=== PATIENT | female | born 1935 | race Caucasian/White ===

== ENCOUNTER 2023-09-02 07:13 | Inpatient (IN) | payer MEDICARE, BC, SELFPAY ==
[2023-09-02] VITALS (19 sets, daily range): BP systolic 98–172; BP diastolic 61–71; PULSE 74–118; RESP 14–27; TEMP 36.7–36.9; O2SAT 85–99; BMI 16.1; BMI 27.2
--- NOTE | 2023-09-02 07:21 | ECG_ITS ---
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
--- NOTE | 2023-09-02 07:22 | CT_ITS ---
[place] [id number] Patient Name: RICHARD HUNT MRN: [id number] date: 1935 Sex: F Assigned Patient Location: ER Current Patient Location: ED.MAIN Accession/Order Number: [id number] Exam Date: 09/02/2023 07:43 Report Date: 09/02/2023 08:15 At the request of: SUSU ESTRADA Procedure: CT head/brain wo con CT head/brain wo con, 09/02/2023 7:43 AM EDT INDICATION: Fall COMPARISON: Noncontrast CT of the head 08/19/2021, noncontrast CT of the head 09/07/2022 TECHNIQUE: Axial CT images of the brain from skull base to vertex, including portions of the face and sinuses, were obtained without contrast. Multiplanar reformatted images were generated and reviewed as needed. FINDINGS: No intracranial mass, hydrocephalus, midline shift or acute hemorrhage. No extra-axial collection. Multifocal and confluent periventricular and deep white matter microvascular ischemic change. Ward-white matter differentiation is preserved. Remote lacunar infarcts and calcification within the basal ganglia bilaterally. Hyperostosis with chronic mucosal thickening within the maxillary sinus, sphenoid sinus and ethmoid air cells bilaterally. Mucosal thickening within the left frontal sinus. The remaining visualized paranasal sinuses and mastoid air cells are clear. Stable degenerative change right temporomandibular joint. Orbits are within normal limits. No acute skull fracture. CT/CT head/brain wo con IMPRESSION: No acute intracranial abnormality. Electronically authenticated by: REINALDO COLEMAN Date: 09/02/2023 08:15
--- NOTE | 2023-09-02 07:22 | XR_ITS ---
The [address] [address] Patient Name: RICHARD HUNT MRN: [id number] date: 1935 Sex: F Assigned Patient Location: ER Current Patient Location: ER Accession/Order Number: [id number] Exam Date: 09/02/2023 07:50 Report Date: 09/02/2023 08:26 At the request of: SUSU ESTRADA Procedure: XR chest 1V EXAM: CHEST 1 VIEW HISTORY: fall TECHNIQUE: Chest, one view. COMPARISON: 08/22/2021 FINDINGS: There are chronic interstitial and mild hazy opacities throughout both lungs, unchanged, and likely from chronic interstitial lung disease/pulmonary fibrosis. There is no significant lung consolidation. No effusion. No pneumothorax. There is aortic atherosclerosis and normal heart size. Pulmonary vasculature within normal limits. XR/XR chest 1V IMPRESSION: 1. No significant change. Chronic interstitial and mild hazy opacities throughout the lungs reflecting chronic interstitial lung disease/pulmonary fibrosis. No significant lung consolidation but small areas of pneumonitis can be obscured. 2. Atherosclerosis and normal heart size. Electronically authenticated by: ARTUR CLARK Date: 09/02/2023 08:26
--- NOTE | 2023-09-02 07:23 | XR_ITS ---
The [address] [address] Patient Name: RICHARD HUNT MRN: [id number] date: 1935 Sex: F Assigned Patient Location: ER Current Patient Location: ED.MAIN Accession/Order Number: [id number] Exam Date: 09/02/2023 07:50 Report Date: 09/02/2023 10:04 At the request of: SUSU ESTRADA Procedure: XR hip BI w PEL 1V EXAM: XR hip BI w PEL 1V 09/02/2023 COMPARISON STUDY: CT of the abdomen and pelvis 08/20/2021. FINDINGS: AP pelvis as well as frontal and frogleg views of each hip for a total of 5 images obtained. HISTORY: fall XR/XR hip BI w PEL 1V IMPRESSION: 1. No acute fracture or dislocation. 2. Lumbar dextroscoliosis centered at the L4 level with moderate to severe degenerative changes from L3-L4 through L5-S1 levels again noted. 3. Mild/moderate arthritic changes about both hips and pubic symphysis and less so about both SI joints with evidence of chondrocalcinosis again noted. 4. Atherosclerosis with peripheral vascular arterial disease again noted. 5. Lobulated calcified focus within the right hemipelvis, 2.6 cm superior to inferior again identified. Numerous subcentimeter pelvic phleboliths are identified. Electronically authenticated by: JAYANT MONTEIRO Date: 09/02/2023 10:04
--- NOTE | 2023-09-02 07:23 | CT_ITS ---
The [address] [address] Patient Name: RICHARD HUNT MRN: [id number] date: 1935 Sex: F Assigned Patient Location: ER Current Patient Location: ER Accession/Order Number: [id number] Exam Date: 09/02/2023 07:42 Report Date: 09/02/2023 08:33 At the request of: SUSU ESTRADA Procedure: CT lumbar spine wo con EXAMINATION: CT lumbar spine wo con HISTORY: fall COMPARISON: No relevant comparison available. TECHNIQUE: Axial, Coronal, and Sagittal CT images were created without I.V. contrast material. Dose reduction techniques were achieved by using automated exposure control and/or adjustment of mA and/or kV according to patient size and/or use of iterative reconstruction technique. FINDINGS: PARASPINAL AREA: Normal with no visible mass. BONES: No acute fracture or dislocation. Moderate to severe degenerative changes with spondylosis and facet osteoarthritis. Rotatory levocurvature DISC LEVELS: Moderate to severe disc space narrowing with vacuum discs and endplate sclerosis with narrowing of the right L4-L5 and L5-S1 neuro foramen CT/CT lumbar spine wo con IMPRESSION: Moderate to severe degenerative changes with no acute fracture Electronically authenticated by: TAL MALDONADO Date: 09/02/2023 08:33
--- NOTE | 2023-09-02 07:25 | ED.BACK1 ---
HPI - Back Pain/Injury General Chief Complaint: Back Pain/Injury Stated Complaint: fall Time Seen by Provider: 09/02/23 07:21 Source: patient and family Mode of arrival: ambulance Limitations: no limitations History of Present Illness HPI Narrative: patient here today for evaluation of a fall. She lives independently and her family says she normally does very well. They saw her last night. The 's son was suspicious because she is having increasing ear pain last night and needed assistance getting out of her chair. When they went to her house this morning she had fallen by her bedside. She was awake alert and coherent with no change in her normal cognition. She does have a local primary care doctor. She does not have a complaint of head or neck pain. She is a good historian complains of pain in her low back and both hips. She's not had previous back or hip surgery. She has no chest pain or shortness of breath. She's not been sick with cough cold congestion fever chills nausea or vomiting. (Family says she normally does quite well on herself at home. Related Data Allergies Allergy/AdvReac Type Severity Reaction Status Date / Time No Known Drug Allergies Allergy Verified 09/02/23 07:16 [facility] Social History Smoking status: Never smoker Exam Narrative Exam Narrative: patient is awake alert oriented ?3. Vital signs as noted. She complains low back pain. She is oriented ?3 and knows her family members well and communicates well with us. HEENT shows no evidence craniofacial trauma or injury. She has no pain with palpation of her neck and cervical spine. Her chest shows no his of bruises or contusions. Her lungs are clear with no wheezes rales or rhonchi. Heart rate and rhythm showed mild irregularity confirmed with EKG that suggest atrial fibrillation. Abdomen is nontender to palpation. Pelvis has no discomfort when rocking. Hip range of motion passive did not reproduce any pain or discomfort. There is no external rotation or shortening of the extremity. Her pulses to the extremities were strong with good peripheral perfusion. Turning her on her left side she does have midline low back pain. There is no evidence of shingles or other skin lesions no evidence of bruises or contusions. Constitutional Vital Signs, click to edit/add: Last Vital Signs Temp 98.1 F 09/02/23 07:16 Pulse 106 H 09/02/23 08:40 Resp 27 H 10/10/23 08:40 BP 147/68 H 09/02/23 07:16 Pulse Ox 99 09/02/23 08:40 O2 Del Method Room Air 09/02/23 07:16 Course Vital Signs Vital signs: Vital Signs Temperature 98.1 F 09/02/23 07:16 Pulse Rate 118 H 09/02/23 07:16 Respiratory Rate 20 09/02/23 07:16 Blood Pressure 147/68 H 09/02/23 07:16 Pulse Oximetry 96 09/02/23 07:16 Oxygen Delivery Method Room Air 09/02/23 07:16 Temperature 98.1 F 09/02/23 07:16 Pulse Rate 106 H 09/02/23 08:40 Respiratory Rate 27 H 09/02/23 08:40 Blood Pressure 147/68 H 09/02/23 07:16 Pulse Oximetry 99 09/02/23 08:40 Oxygen Delivery Method Room Air 09/02/23 07:16 MDM - Back Pain/Injury MDM Narrative Medical decision making narrative: CT scan of the lumbar spine had disclosed no acute findings but there is moderate to severe degenerative changes in her spine. Other imaging did not disclose any acute fracture. Laboratory studies show increased BUN/creatinine. Her urinalysis appears to be contaminated study and we will discuss this with the on with the admitting physician. Her labs suggest dehydration and inability take care of herself at home according to the family members. Just admission for hydration rule out urinary tract infection and supportive care for her ongoing back problems Two speaking with the attending physician who agrees for admission we will go ahead and start her on Rocephin. EKG is consistent with atrial fibrillation but she does have stable vitals and controlled ventricular response at this time. This was discussed with the family Lab Data Labs: Lab Results 09/02/23 Range/Units 07:35 WBC 17.7 H (4.0-11.0) 10^3/uL RBC 3.50 L (4.20-5.40) 10^6/uL Hgb 10.2 L (12.0-16.0) g/dL Hct 30.1 L (36.0-48.0) % MCV 86.0 (81.0-99.0) fL MCH 29.1 (26.7-34.0) pg MCHC 33.9 (29.9-35.2) g/dL RDW 13.5 (11.0-15.0) % Plt Count 154 (150-450) 10^3/uL MPV 9.9 (9.5-13.5) fL Seg Neuts % (Manual) 90.0 Band Neutrophils % 3.0 (0-5) % Lymphocytes % (Manual) 2.0 L (20.5-60.0) % Monocytes % (Manual) 5.0 (1.7-12.0) % Eosinophils % (Manual) 0.0 L (0.9-7.0) % Basophils % (Manual) 0.0 L (0.2-2.0) % Neutrophils # (Manual) 15.93 H (1.4-6.5) 10^3/uL Band Neutrophils # 0.5 H (0.0-0.3) 10^3/uL Lymphocytes # (Manual) 0.35 L (1.20-3.80) 10^3/uL Monocytes # (Manual) 0.88 H (0.30-0.80) 10^3/uL Eosinophils # (Manual) 0.00 (0.00-0.70) 10^3/uL Basophils # (Manual) 0.00 (0.00-0.10) 10^3/uL Sodium 134 L (136-145) mmol/L Potassium 4.3 (3.5-5.1) mmol/L Chloride 101 (98-107) mmol/L Carbon Dioxide 19.7 L (21.0-32.0) mmol/L Anion Gap 17.6 BUN 35.0 H (7.0-18.0) mg/dL Creatinine 1.73 H (0.55-1.02) mg/dL Est GFR ( Amer) 34 L (>=60) Est GFR (Non-Af Amer) 28 L (>=60) BUN/Creatinine Ratio 20.2 Glucose 157 H (74-106) mg/dL Calcium 8.9 (8.5-10.1) mg/dL Total Bilirubin 0.7 (0.2-1.0) mg/dL AST 45 H (15-37) U/L ALT 20 (14-59) U/L Alkaline Phosphatase 50 (46-116) U/L Troponin I High Sens 59.0 H* (4.0-51.3) pg/mL Total Protein 7.4 (6.4-8.2) g/dL Albumin 3.3 L (3.4-5.0) g/dL Globulin 4.1 g/dL Albumin/Globulin Ratio 0.8 Urine Color Yellow (YELLOW) Urine Clarity Clear (CLEAR) Urine pH 6.0 (5.0-9.0) Ur Specific [place] 1.025 (1.005-1.025) Urine Protein >=300 A (NEG/TRACE) mg/dL Urine Glucose (UA) Negative (NEGATIVE) mg/dL Urine Ketones Trace A (NEGATIVE) mg/dL Urine Occult Blood Large A (NEGATIVE) Urine Nitrite Negative (NEGATIVE) Urine Bilirubin Negative (NEGATIVE) Urine Urobilinogen 0.2 (0.2-1.0) EU/dL Ur Leukocyte Esterase Moderate A (NEGATIVE) Urine RBC 20-50 A (0-2) #/HPF Urine WBC 50-75 A (NONE SEEN) #/HPF Ur Squamous Epith Cells Moderate A (NONE/RARE) #/LPF Urine Crystals None seen (None Seen) #/HPF Urine Bacteria Moderate A (NONE SEEN) #/HPF Urine Casts None seen (NONE SEEN) #/LPF Urine Mucus Trace A (NONE SEEN) Ur Culture Indicated? Yes Discharge Plan Discharge Chief Complaint: Back Pain/Injury Clinical Impression: Urinary tract infection, Acute dehydration, Strain of lumbar region Patient Disposition: Admitted as Observation Time of Disposition Decision: 09:01
[2023-09-02 07:41] LABS: Bilirubin Urine NEGATIVE (NEGATIVE); Blood Urine LARGE (NEGATIVE); Clarity Urine CLEAR (CLEAR); Color Urine YELLOW (YELLOW); Glucose Urine UA NEGATIVE (NEGATIVE); Ketones Urine TRACE mg/dL (NEGATIVE); Leukocyte Esterase Urine MODERATE (NEGATIVE); Nitrite Urine NEGATIVE (NEGATIVE); Protein Urine >=300 mg/dL (NEG/TRACE); Specific Gravity Urine 1.025 (1.005-1.025); Urobilinogen Urine 0.2 EU/dL (0.2-1.0)
[2023-09-02 07:42] LABS: Hematocrit 30.1 % (36.0-48.0); Hemoglobin 10.2 g/dL (12.0-16.0); Mean Corpuscular HGB Conc 33.9 g/dL (29.9-35.2); Mean Corpuscular Hemoglobin 29.1 pg (26.7-34.0); Mean Platelet Volume 9.9 fL (9.5-13.5); Platelet Count 154 10^3/uL (150-450); Red Cell Distribution Width 13.5 % (11.0-15.0); White Blood Count 17.7 10^3/uL (4.0-11.0)
[2023-09-02 07:45] LABS: Urine Microscopic Indicated YES
[2023-09-02 07:59] LABS: Alanine Aminotransferase 20 U/L (14-59); Albumin Globulin Ratio 0.8; Albumin Level 3.3 g/dL (3.4-5.0); Alkaline Phosphatase 50 U/L (46-116); Anion Gap 17.6; Aspartate Amino Transferase 45 U/L (15-37); BUN Creatinine Ratio 20.2; Bacteria Urine MODERATE #/HPF (NONE SEEN); Bilirubin Total 0.7 mg/dL (0.2-1.0); Calcium 8.9 mg/dL (8.5-10.1); Carbon Dioxide 19.7 mmol/L (21.0-32.0); Cast Seen? NONE SEEN #/LPF (NONE SEEN); Chloride 101 mmol/L (98-107); Crystals Seen? None Seen #/HPF (None Seen); Estimated GFR (African America 34 (>=60); Estimated GFR (Non-African Ame 28 (>=60); Globulin 4.1 g/dL; Glucose 157 mg/dL (74-106); Mucus Urine TRACE (NONE SEEN); Potassium 4.3 mmol/L (3.5-5.1); RBC Urine 20-50 #/HPF (0-2); Sodium 134 mmol/L (136-145); Squamous Epithelial Cell Urine MODERATE #/LPF (NONE/RARE); Total Protein 7.4 g/dL (6.4-8.2); Urine Culture Indicated YES; WBC Urine 50-75 #/HPF (NONE SEEN)
[2023-09-02 08:03] LABS: Band Neutrophils Absolute 0.5 10^3/uL (0.0-0.3); Lymphocytes Absolute Manual 0.35 10^3/uL (1.20-3.80)
[2023-09-02 08:04] LABS: Monocytes Absolute Manual 0.88 10^3/uL (0.30-0.80); Segmented Neut Absolute Manual 15.93 10^3/uL (1.4-6.5)
[2023-09-02] MEDS: 0.9 % SODIUM CHLORIDE 1,000 ML 1000 ML IV (08:30)
[2023-09-02] MEDS: HYDROMORPHONE HCL 0.5 MG/0.5 ML SYRINGE IV (09:01)
[2023-09-02] MEDS: CEFTRIAXONE 1,000 MG in 0.9 % SODIUM CHLORIDE 50 ML 100 MG IV (10:05)
[2023-09-02 10:10] LABS: Troponin I High Sensitivity 57.2 pg/mL (4.0-51.3)
--- NOTE | 2023-09-02 11:28 | ECG_ITS ---
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1935 Requested By: SEAN GARLAND Order Number: [id number] Reading MD: YOGI LERNER Measurements Intervals [place] Rate: 99 P: IN: QRS: -22 QRSD: 84 T: 66 QT: 346 QTc: 445 Interpretive Statements ATRIAL FIBRILLATION WITH ABERRANT CONDUCTION OR VENTRICULAR PREMATURE COMPLEXES BORDERLINE LEFT AXIS DEVIATION [QRS AXIS < -20] ABNORMAL RHYTHM ECG Compared to ECG 09/02/2023 07:28:18 Ventricular premature complex(es) now present Aberrant conduction of supraventricular beat(s) now present Myocardial infarct finding no longer present Baseline artifact present Electronically Signed On 09-03-2023 7:08:46 EDT by YOGI LERNER
[2023-09-02 12:13] LABS: Glucometer 170 mg/dL (74-106)
[2023-09-02] MEDS: LIDOCAINE 5% PATCH 1 PATCH TOPICAL (12:18)
[2023-09-02] MEDS: TRAMADOL HCL 50 MG TABLET PO (12:18)
[2023-09-02] MEDS: INSULIN ASPART 300 UNIT/3 ML PEN SUBQ ×2 (12:18→20:55)
--- NOTE | 2023-09-02 12:21 | P.HP_ITS ---
Patient seen and examined, agree with assessment below. Recently with increased back pain and found UTI. Also with rhabdo and JOSE. Will treat with rocephin and await culture results. Continue IV fluids and monitor labs. New onset afib and consult cardiology. Start lovenox. Start prednisone for back pain. Start PT/OT. Resume home medication. Dx: 1. UTI 2. JOSE 3. Dehydration 4. Paroxysmal afib 5. Rhabdomyolysis 6. Elevated troponin 7. Lumbar DDD 8. DM2 9. HTN 10. CKD 3b H&P: HPI History of Present Illness Chief complaint: FALL/UTI/ACUTE DEHYDRATION/LUMBAR STRAIN Narrative: Date/Time of exam: 09/02/23 1100 This is an 88-year-old female patient with a past medical history as outlined below including HTN, hypothyroidism, and DM type II currently diet controlled after weight loss; who presented to the ED today via EMS after her son found her on the floor next to her bed. He reports that in the last 2 days she suddenly became very weak and was complaining of severe low back pain making it difficult to impossible for her to ambulate. The patient lives independently with her son checking on her frequently. Yesterday evening the patient was very weak and having difficulty ambulating back to her bed from the bathroom. Because of this her son checked on her early this morning and found that she had rolled out of bed, was on the floor and unable to get up. It is unknown how long she remained on the floor prior to discovery. She was transported to the ER via EMS for further evaluation. Work-up in the ED was negative for acute L-spine or pelvic abnormality with no fracture or dislocation identified. Chest x-ray and CT of the brain were also negative for acute abnormalities but chronic arthritic changes were noted. Labs revealed a UTI, JOSE on CKD 3B, and dehydration. New onset atrial fib was also noted on EKG with a slight bump in troponin (59) although the patient completely denies chest pain. She is being admitted as an inpatient to the hospitalist service for treatment of the above conditions. On my exam the patient is lying comfortably in bed. She completely denies chest pain, shortness of breath, dizziness, head pain or vision changes, N/V/D, or any other acute complaint besides back pain. Her son at the bedside states she frequently complains of constipation and self manages with stool softeners, sometimes inappropriately. No known recent constipation or diarrhea. She denies dysuria but suprapubic tenderness is noted on exam. She notes onset of severe lumbar/sciatic pain approximately 2 days ago. She denies any falls or injuries leading to this onset of pain. She reports that she was unable (or found it very difficult) to ambulate in the last 24 hours due to her back pain. No evidence of paresthesia or saddle anesthesia. She reports loss of appetite that corresponded to onset of back pain as well. The patient and son at the bedside both deny history of atrial fibrillation in the past. The patient is notably confused about recent events but is oriented x 3. Her son confirms that she appears to have some chronic dementia although this has not been formally diagnosed and has not acutely worsened. We will add on a CPK to assess for possible rhabdomyolysis as the inciting event for her JOSE. She will require at least a 2 midnight stay for IVF and IVPB antibiotic administration, specialty cardiac consult care, and careful lab and cardiac rhythm monitoring. ADDENDUM 1350: CPK resulted at 1736 indicating Rhabdomyolysis is present. In addition, pt frequently requesting bedpan but only minimal urine output per nursing. Bladder scan revealed > 1000 ml in her bladder - Acute urinary retention also present. Home Detrol LA is already on hold and may need to be discontinued at discharge. Consider urology consult pending clinical course. 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 - Lymphocytopenia (ICD-10) Chronic kidney disease, stage 3b ?N18.32 - Chronic kidney disease, stage 3b (ICD-10) Diabetes type 2, controlled ?E11.9 - Type 2 diabetes mellitus without complications (ICD-10) Diastolic dysfunction ?I51.89 - Other ill-defined heart diseases (ICD-10) High cholesterol ?E78.00 - Pure hypercholesterolemia, unspecified (ICD-10) Hypertension ?I10 - Essential (primary) hypertension (ICD-10) Hypothyroidism ?E03.9 - Hypothyroidism, unspecified (ICD-10) Nocturia ?R35.1 - Nocturia (ICD-10) Surgical History (Updated 09/02/23 @ 11:15 by Xi Sheldon RN) H/O: hysterectomy ?Z90.710 - Acquired absence of both cervix and uterus (ICD-10) Family History (Updated 09/02/23 @ 11:14 by Xi Sheldon RN) Mother Family history of diabetes mellitus Father Family history of diabetes mellitus Family history of hypertension Son Family history of cancer Social History (Updated 09/02/23 @ 11:15 by Xi Sheldon RN) Within the past year, how often did you have a drink containing alcohol: never Score interpretation: A score less than 3 is consistent with normal alcohol consumption. Smoking status: Never smoker Non-prescribed substance use: denies use Meds Home Medications and Allergies Home Medications Medication Instructions Recorded Confirmed Type alendronate 70 mg tablet 70 mg PO .weekly 09/02/23 09/02/23 History amlodipine 10 mg tablet 10 mg PO DAILY 09/02/23 09/02/23 History carvedilol 12.5 mg tablet 12.5 mg PO Q12H 09/02/23 09/02/23 History levothyroxine 125 mcg tablet 125 mcg PO DAILY 09/02/23 09/02/23 History simvastatin 40 mg tablet 40 mg PO DAILY 09/02/23 09/02/23 History tolterodine 2 mg tablet 2 mg PO BEDTIME 09/02/23 09/02/23 History Allergies Allergy/AdvReac Type Severity Reaction Status Date / Time No Known Drug Allergies Allergy Verified 09/02/23 07:16 Exam Constitutional Vital Signs, click to edit/add: Last Vital Signs Temp 98.4 F 09/02/23 10:10 Pulse 112 H 09/02/23 12:18 Resp 20 09/02/23 10:10 BP 172/68 H 09/02/23 10:10 Pulse Ox 93 L 09/02/23 10:10 O2 Del Method Room Air 09/02/23 10:10 Common normals: no apparent distress, oriented x3, alert and well nourished General appearance: cooperative Orientation/consciousness: Yes awake HENMT Common normals: normocephalic, head/scalp atraumatic, external ears normal and external nose normal Head and scalp: normocephalic and atraumatic Face and sinus: normal facial exam Nose: external nose normal External ear: external ears normal Mouth: moist mucous membranes abnormal Details: cracked Eye Common normals: PERRL, EOMs intact bilaterally, conjunctivae normal and no scleral icterus General eye: normal appearance of both eyes Alignment: alignment normal Eyelid: eyelids normal Conjunctiva: conjunctiva(e) normal Pupil: PERRL Neck & C-Spine Common normals: full ROM, supple and no JVD Chest Common normals: inspection of chest normal Chest: symmetrical chest wall rise Respiratory Common normals: normal respiratory effort, no retractions, no use of accessory muscles and clear to auscultation bilaterally Effort & inspection: able to speak in complete sentences Auscultation: clear to auscultation bilaterally Cardio Common normals: no JVD, regular rate, S1 normal heart sound, S2 normal heart sound, no gallops, no clicks, no rub and peripheral pulses 2+ throughout Rate: regular rate Rhythm: abnormal rhythm irregularly irregular Heart sounds: S1 normal, S2 normal and murmur (HSM 2/6) Peripheral pulses: pulses 2+ throughout GI Common normals: Normal to inspection, nondistended, normoactive bowel sounds present, soft to palpation, non-tender, no hepatosplenomegaly, no masses and no bruits Palpation: soft and no hepatosplenomegaly Bladder/kidney exam: no CVA tenderness and bladder abnormal to palpation Bladder abnormal details: tender Back & Pelvis Common normals: thoracic and lumbar spine normal to inspection Lumbar spine/lower back: ROM limited and lumbar spinal tenderness Extremity Common normals: normal capillary refill and no pedal edema General: normal exam except as noted; no clubbing and no cyanosis Neuro [place] Coma Scale: GCS not evaluated Common normals: oriented x3, CN's II-XII intact bilaterally, moves all extremities, no focal motor deficits and no sensory deficits noted Sensorium/orientation: awake and alert Speech: speech normal Psych Common normals: mental status grossly normal, thought process normal, affect normal and activity/motor behavior normal Thought process: normal thought process Results Labs Labs: Short CBC 09/02/23 Range/Units 07:35 WBC 17.7 H (4.0-11.0) 10^3/uL Hgb 10.2 L (12.0-16.0) g/dL Hct 30.1 L (36.0-48.0) % Plt Count 154 (150-450) 10^3/uL BMP 09/02/23 07:35 Sodium 134 L Potassium 4.3 Chloride 101 Carbon Dioxide 19.7 L BUN 35.0 H Creatinine 1.73 H Glucose 157 H Calcium 8.9 Liver Function 09/02/23 Range/Units 07:35 Total Bilirubin 0.7 (0.2-1.0) mg/dL AST 45 H (15-37) U/L ALT 20 (14-59) U/L Alkaline Phosphatase 50 (46-116) U/L Albumin 3.3 L (3.4-5.0) g/dL Urine 09/02/23 Range/Units 07:35 Urine Color Yellow (YELLOW) Urine Clarity Clear (CLEAR) Urine pH 6.0 (5.0-9.0) Ur Specific [place] 1.025 (1.005-1.025) Urine Protein >=300 A (NEG/TRACE) mg/dL Urine Glucose (UA) Negative (NEGATIVE) mg/dL Pulse Oximetry Attestation: I have reviewed the pertinent pulse oximetry results. Assessment and Plan Assessment and Plan (1) Urinary tract infection: Assessment and Plan: ACUTE * Adm inpatient * UA positive for infection, leukocytosis, suprapubic tenderness support acute UTI * Urine Cx collected - pending * No clinical concern for sepsis at this time but pt is at risk. Monitor closely * Rocephin 1gm IVPB daily as initiated in the ED * CBC, CMP daily (2) Acute kidney injury superimposed on CKD: Assessment and Plan: ACUTE Laboratory Tests 09/02/23 07:35 BUN 35.0 H Creatinine 1.73 H Est GFR (Non-Af Amer) 28 L * JOSE likely multifactorial including UTI, dehydration, and possibly rhabdomyolysis after prolonged downtime * add CPK to ED labs to r/o rhabdo * NS boluses + LR as noted below - low threshold to increase rate if rhabdo is confirmed * Hold all renal toxic medications * Treat UTI as above * Baseline CKD3b - see below * CMP daily (3) Acute dehydration: Assessment and Plan: ACUTE * Likely d/t poor appetite and difficulty ambulating 2/2 severe back pain, likley exacerbated by baseline suspected dementia * 2L IVFs given in ED * Start maintenance IVF at 85/hr for gentle hydration in setting of diastolic HF per medical record - low threshold to increase rate for rhabdo as noted above * Strict I&O and daily weights * CMP daily (4) Atrial fibrillation with controlled ventricular rate: Assessment and Plan: ACUTE * New onset per pt & family * Controlled rate 80-95 bpm * [id number] score of 5 - high risk * Initiate therapeutic lovenox 1mg/kg BID pending cardiology recommendations - pharmacy to renally dose * Pt does not fall frequently, but is at risk. Ambulates with cane or walker. * Anti-coagulation therapy recommendations per cardiology appreciated * Consult cardiology - we appreciate their assistance with this pt's care * Serial EKGs and troponins to r/o ACS as inciting event w/ mild bump in troponins in the ED * Pt denies CP, but w/ hx of DM2 and likely dementia, mild or silent symptoms may have been missed * 2D Echo complete to r/o WM or valvular abnormalities * Tele monitoring * Electrolytes WNL - check magnesium in AM * Continue home Coreg for rate control, consider increasing dose if clinically indicated or per cardiology recommendations (5) Elevated troponin I level: Assessment and Plan: ACUTE * Likely 2/2 JOSE on CKD3b, but Type 2 KS cannot be completely ruled out at this time * Serial EKGs/[place] q3h x 2 * See new onset a-fib above (6) Strain of lumbar region: Assessment and Plan: ACUTE * No known fall or inciting event for severe back pain * CT L-spine and pelvis XR neg for acute fx * Pain management: * Tramadol 50-100mg PRN for mod to severe pain * Lidoderm patch to affected area q12h * Prednisone 20 mg PO daily x 5 days * Consider MRI L-spine pending clinical course as nerve compression or occult compression fx remain in the differential * PT/OT consults for strengthening and likely SNF evaluation. (7) Diabetes type 2, controlled: Assessment and Plan: CHRONIC * Pt taken off all hyperglycemia medications recently d/t weight loss and improved BS control * Hyperglycemia noted on ED labs * Check A1C in AM to fully assess for adequate BS control * ACHS glucometer checks * Regular diet d/t suppressed appetite * Low SSI for glucose correction (8) Chronic kidney disease, stage 3b: Assessment and Plan: CHRONIC * Baseline CKD3b - lab ranges: * BUN 33-50 * Cr 1.3-1.6 * eGFR 30-38 * See JOSE above (9) High cholesterol: Assessment and Plan: CHRONIC * Continue home statin (10) Hypertension: Assessment and Plan: CHRONIC * Continue home amlodipine (11) Hypothyroidism: Assessment and Plan: CHRONIC * Continue home levothyroxine * Check TSH in AM (12) Nocturia: Assessment and Plan: CHRONIC * Hold home bedtime Detrol LA in setting of acute UTI and dehydration * Likely resume at discharge pending clinical course
[2023-09-02 12:38] LABS: Creatine Kinase 1736 U/L (26-192)
[2023-09-02 12:39] LABS: Troponin I High Sensitivity 63.2 pg/mL (4.0-51.3)
--- NOTE | 2023-09-02 12:40 | CA_ITS ---
Patient: RICHARD HUNT Exam Date: 09/02/2023 : 1935 Gender:F Ordering : ASIF RIVERSNIS Admission #: [id number] Family : DR Ryan Murdock . Order #: [id number] CLICK HERE TO VIEW EXAM ECHOCARDIOGRAM REPORT PROCEDURE: CA ECHO DOPPLER COMPLETE INDICATIONS: New atrial fibrillation, mild trop bump, hypertension, diabetes, chronic kidney disease III COMPARISON: None. DESCRIPTION: COMPLETE ECHOCARDIOGRAM Real-time transthoracic echocardiography with 2D, M-mode, spectral and color flow Doppler performed. QUALITY: Technical quality was good. LEFT VENTRICLE: Normal chamber size. Proximal septal hypertrophy (sigmoid septum). LV EF: Normal left ventricular ejection fraction, (>55%). DIASTOLIC: Grade II diastolic dysfunction. ATRIAL SEPTUM: Visually appears intact LEFT ATRIUM: Moderate dilatation. RIGHT ATRIUM: Moderate dilatation. RIGHT VENTRICLE: Mild dilatation. Normal right ventricular systolic function. TRICUSPID VALVE: Normal mobility and thickness. No stenosis with trivial regurgitation. Doppler studies reveal severely (>60) elevated right sided pressures. RVSP 62 mmHg MITRAL VALVE: Mildly thickened with normal mobility. No evidence of mitral valve stenosis. Mild mitral annular calcification. Trivial mitral regurgitation. AORTIC VALVE: Normal trileaflet appearance. Mildly calcified aortic valve. Mildly diminished mobility. No evidence of aortic valve stenosis. DVI 0.5. No aortic regurgitation. AORTIC ROOT: Normal diameter and appearance. PULMONIC VALVE: Normal thickness and mobility. No stenosis. No regurgitation. PERICARDIUM: No evidence of pericardial effusion. IVC: Collapses with inspirations. IVC is dilated (2.2 cm) PLEURA: CONCLUSION: 1. Normal left ventricular size and systolic function. LVEF is 60%. 2. Mildly dilated right ventricle with normal systolic function. 3. Grade 2 diastolic dysfunction. 4. Moderate biatrial dilatation. 5. Mildly calcified aortic valve with no significant stenosis. 6. No significant valvular dysfunction. 7. Severely elevated right-sided pressures. RVSP is 62 mmHg. Adult Echocardiography Procedure Report Left Ventricle LVEDD (3.7 - 5.6 cm): 4.32 cm LVESD (2.2 - 4.0 cm): 3.34 cm LVIVS thickness (0.6 - 1.2 cm): 1.70 cm LVPW thickness (0.5 - 1.0 cm): 0.96 cm e': 0.11 m/s E - e': 10.58 LVOT Max Gradient: 4.56 mm[Hg], 4.47 mm[Hg] LVOT Area (cm2): 1.06 m/s Peak Velocity (LVOT): 1.07 m/s, 1.06 m/s LVOT Diameter 2.21 cm Left Atrium LA Volume Index (2D A2C): 44.23 ml/m2 Left Atrium Systolic Dimension: 3.98 cm Mitral Valve MV E to A Ratio: 1.13, 1.13, 1.14 Mitral Valve A-Wave Peak Velocity: 0.99 m/s Mitral Valve E-Wave Peak Velocity: 1.13 m/s Right Ventricle Aorta AO Root Diam: 3.28 cm Ascending Ao Diam: 2.68 cm Aortic Valve AoV Area (Peak Akash): 2.06 cm2, 2.04 cm2, 2.05 cm2 Peak Velocity(Antegrade Flow): 2.01 m/s, 1.98 m/s, 1.95 m/s Peak Gradient(Antegrade Flow): 16.20 mm[Hg], 15.68 mm[Hg], 15.18 mm[Hg] Tricuspid Valve Peak Velocity (Regurgitant Flow): 2.40 m/s, 3.67 m/s Pulmonic Valve Mean Gradient: 4.46 mm[Hg], 2.45 mm[Hg], 3.11 mm[Hg] Mean Velocity: 1.01 m/s, 0.71 m/s, 0.82 m/s Peak Velocity: 1.23 m/s, 1.38 m/s Peak Gradient: 6.54 mm[Hg], 8.80 mm[Hg], 7.33 mm[Hg], 5.00 mm[Hg], 5.90 mm[Hg] Right Atrium Right Atrium Systolic Pressure: 60.59 ml, 60.59 ml Dictated by: Forest Quiñones M.D. on 09/02/2023 at 19:10 Approved by: Forest Quiñones M.D. on 09/02/2023 at 19:16
[2023-09-02] MEDS: LACTATED RINGER'S SOLUTION 1,000 ML 100 ML IV (13:52)
[2023-09-02] MEDS: PREDNISONE 20 MG TABLET PO (13:52)
[2023-09-02] MEDS: ENOXAPARIN SODIUM 100 MG/ML SYRINGE 80 MG SUBQ (13:53)
--- NOTE | 2023-09-02 14:11 | SWNOTE1 ---
SW to speak with pt/family in regards to discharge plans.
--- NOTE | 2023-09-02 14:25 | SWNOTE1 ---
SW went to talk with pt, but she was having an EKG done. SW called and attempted to speak with pt's son, but daughter in law answered phone. She was able to answer questions. The plan is for her to go to [facility] if therapy recommends SNF. She stated pt was doing really well on her own but recently has been more weak than usual. She was at [facility] back during Covid. SW to see how therapy eval goes and then send referral if needed.
--- NOTE | 2023-09-02 14:35 | ECG_ITS ---
[facility] Test Date: 2023-09-02 Pat Name: RICHARD HUNT Department: Room: 2181 Gender: Female [employer]: : 1935 Requested By: SEAN GARLAND Order Number: [id number] Reading MD: YOGI LERNER Measurements Intervals [place] Rate: 94 P: AL: QRS: -31 QRSD: 83 T: 36 QT: 345 QTc: 433 Interpretive Statements ATRIAL FIBRILLATION MARKED LEFT AXIS DEVIATION [QRS AXIS < -30] Compared to ECG 09/02/2023 11:53:37 Ventricular premature complex(es) no longer present Aberrant conduction of supraventricular beat(s) no longer present Electronically Signed On 09-03-2023 7:09:07 EDT by YOGI LERNER
[2023-09-02 14:39] LABS: Bilirubin Urine NEGATIVE (NEGATIVE); Blood Urine LARGE (NEGATIVE); Clarity Urine CLEAR (CLEAR); Color Urine LT. YELLOW (YELLOW); Glucose Urine UA NEGATIVE (NEGATIVE); Ketones Urine TRACE mg/dL (NEGATIVE); Leukocyte Esterase Urine LARGE (NEGATIVE); Nitrite Urine NEGATIVE (NEGATIVE); Protein Urine >=300 mg/dL (NEG/TRACE); Specific Gravity Urine 1.025 (1.005-1.025); Urobilinogen Urine 0.2 EU/dL (0.2-1.0); pH Urine 5.5 (5.0-9.0)
[2023-09-02 15:38] LABS: Troponin I High Sensitivity 68.3 pg/mL (4.0-51.3)
[2023-09-02 16:13] LABS: Glucometer 157 mg/dL (74-106)
--- NOTE | 2023-09-02 16:19 | SWNOTE1 ---
Pt was sleeping, SW to assess tomorrow.
--- NOTE | 2023-09-02 17:55 | PM.CACN ---
History of Present Illness History of Present Illness Consult date: 09/02/23 Requesting physician: Ryan Murdock Consult reason: atrial fibrillation Chief complaint: FALL/UTI/ACUTE DEHYDRATION/LUMBAR STRAIN Narrative: Ms. Hameed is a 88-year-old female with a past medical history including hypertension, hyperlipidemia, diabetes mellitus, and CKD. Patient's was brought to hospital due to weakness. She was found to have a UTI, in addition to rhabdomyolysis. During her hospitalization, patient was noted to be in atrial fibrillation. Cardiology was consulted for assistance in evaluation/management. Patient is alert and oriented to person and place. However, she is not oriented to time. She is unable to provide much historical medical information. However, she denies any cardiac complaints or concerns. She denies any chest pain. She denies any shortness of breath. She denies any lower extremity edema, orthopnea, or paroxysmal nocturnal dyspnea. She denies any near-syncope or syncope. She denies any previous cardiac history. She denies any knowledge of arrhythmia. She denies any previous history of CHF, MT, or CVA. Of note: High-sensitivity troponin has been mildly elevated since admission and has been relatively flat. 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 - Lymphocytopenia (ICD-10) Diastolic dysfunction ?I51.89 - Other ill-defined heart diseases (ICD-10) High cholesterol ?E78.00 - Pure hypercholesterolemia, unspecified (ICD-10) Hypothyroidism ?E03.9 - Hypothyroidism, unspecified (ICD-10) Nocturia ?R35.1 - Nocturia (ICD-10) Surgical History H/O: hysterectomy ?Z90.710 - Acquired absence of both cervix and uterus (ICD-10) Family History Mother Family history of diabetes mellitus Father Family history of diabetes mellitus Family history of hypertension Son Family history of cancer Social History Within the past year, how often did you have a drink containing alcohol: never Score interpretation: A score less than 3 is consistent with normal alcohol consumption. Smoking status: Never smoker Non-prescribed substance use: denies use Meds Home Medications and Allergies Home Medications Medication Instructions Recorded Confirmed Type alendronate 70 mg tablet 70 mg PO .weekly 09/02/23 09/02/23 History amlodipine 10 mg tablet 10 mg PO DAILY 09/02/23 09/02/23 History carvedilol 12.5 mg tablet 12.5 mg PO Q12H 09/02/23 09/02/23 History levothyroxine 125 mcg tablet 125 mcg PO DAILY 09/02/23 09/02/23 History simvastatin 40 mg tablet 40 mg PO DAILY 09/02/23 09/02/23 History tolterodine 2 mg tablet 2 mg PO BEDTIME 09/02/23 09/02/23 History Allergies Allergy/AdvReac Type Severity Reaction Status Date / Time No Known Drug Allergies Allergy Verified 09/02/23 07:16 Exam Constitutional Vital Signs, click to edit/add: Last Vital Signs Temp 98.0 F 09/02/23 13:51 Pulse 99 H 09/02/23 15:46 Resp 22 09/02/23 13:51 BP 152/71 H 09/02/23 13:51 Pulse Ox 94 L 09/02/23 13:51 O2 Del Method Room Air 09/02/23 13:51 Documenting provider has reviewed patient's vital signs: yes Common normals: no apparent distress General appearance: cooperative and comfortable Orientation/consciousness: Yes awake, Yes oriented to person and Yes oriented to place; not oriented to time HENNH Common normals: normocephalic Eye Common normals: PERRL and EOMs intact bilaterally Chest Chest: symmetrical chest wall rise Respiratory Common normals: normal respiratory effort, no retractions and no use of accessory muscles Effort & inspection: symmetric chest movement Auscultation: clear to auscultation bilaterally Cardio Common normals: no JVD, S1 normal heart sound and S2 normal heart sound Rate: regular rate Rhythm: abnormal rhythm GI Common normals: Normal to inspection, nondistended, normoactive bowel sounds present Extremity Common normals: normal to inspection and no clubbing, cyanosis or edema Neuro Common normals: moves all extremities and no focal motor deficits Psych Common normals: cooperative, affect normal and speech normal Results Labs and Meds Lab results: Cardiac Enzymes 09/02/23 Range/Units 07:35 AST 45 H (15-37) U/L CBC 09/02/23 Range/Units 07:35 WBC 17.7 H (4.0-11.0) 10^3/uL RBC 3.50 L (4.20-5.40) 10^6/uL Hgb 10.2 L (12.0-16.0) g/dL Hct 30.1 L (36.0-48.0) % Plt Count 154 (150-450) 10^3/uL Comprehensive Metabolic Panel 09/02/23 Range/Units 07:35 Sodium 134 L (136-145) mmol/L Potassium 4.3 (3.5-5.1) mmol/L Chloride 101 (98-107) mmol/L Carbon Dioxide 19.7 L (21.0-32.0) mmol/L BUN 35.0 H (7.0-18.0) mg/dL Creatinine 1.73 H (0.55-1.02) mg/dL Glucose 157 H (74-106) mg/dL Calcium 8.9 (8.5-10.1) mg/dL AST 45 H (15-37) U/L ALT 20 (14-59) U/L Alkaline Phosphatase 50 (46-116) U/L Total Protein 7.4 (6.4-8.2) g/dL Albumin 3.3 L (3.4-5.0) g/dL Intake and Output 09/02/23 09/02/23 09/02/23 07:59 15:59 23:59 Intake Total 1050 / 1550 500 / 1550 Output Total 950 / 950 Balance 100 / 600 500 / 600 Intake: Oral 500 / 500 IV 1050 / 1050 0.9 % Sodium Chloride 1,000 ml 1000 / 1000 @ 1000 mls/hr IV .Q1H ONE Rx#: [id number] Ceftriaxone 1,000 mg In 0.9 % 50 / 50 Sodium Chloride 50 ml @ 100 mls /hr IV ONCE ONE Rx#:[id number] Output: Urine Amount (Catheter) 950 / 950 Urethral 950 / 950 Other: # Incontinent Voids 1 # Urine Diapers 1 Weight 45.359 kg 78.7 kg Patient Weight 09/03/23 07:59 Weight 78.7 kg Assessment and Plan Assessment and Plan (1) Urinary tract infection: (2) Acute kidney injury superimposed on CKD: (3) Acute dehydration: (4) Atrial fibrillation with controlled ventricular rate: (5) Elevated troponin I level: (6) Strain of lumbar region: (7) Diabetes type 2, controlled: (8) Chronic kidney disease, stage 3b: (9) High cholesterol: (10) Hypertension: (11) Hypothyroidism: (12) Nocturia: Plan 1. New onset atrial fibrillation ? Would recommend echocardiogram ? [id number] score at least 5. Would recommend anticoagulation for stroke prevention if no contraindications. There is a documented history of fall. However, there are no family members that are present to provide collateral information, and patient is unable to endorse or deny these claims. Will defer to primary team regarding risk versus benefit of anticoagulation. ? Patient is on carvedilol and rates seem to be well controlled. If heart rates are poorly controlled, can consider converting from carvedilol to metoprolol tartrate or succinate for better heart rate control. ? Patient will need close cardiology follow-up after discharge 2. Elevated troponin level, likely type II from UTI, JOSE, and rhabdomyolysis ?Patient adamantly denies any chest pain. No history of CAD. ? Again, recommend echocardiogram to assess LVEF, wall motion, and valvular function ?No intervention planned from cardiac standpoint at this time. Can consider outpatient stress test if patient has any chest pain and is unwilling to undergo invasive testing ?Recommend treatment of UTI, rhabdo as per primary team Thank you for allowing us to participate in the care of this patient. Please do not to take to contact [facility]ology with any questions/concerns. Gricelda Richard MD
[2023-09-02] MEDS: CARVEDILOL 12.5 MG TABLET PO (20:49)
[2023-09-02 20:54] LABS: Glucometer 221 mg/dL (74-106)
[2023-09-03] VITALS (18 sets, daily range): BP systolic 113–150; BP diastolic 55–78; PULSE 60–76; RESP 16–20; TEMP 36.6–36.9; O2SAT 92–96
[2023-09-03] MEDS: LACTATED RINGER'S SOLUTION 1,000 ML 100 ML IV ×3 (00:04→19:29)
[2023-09-03 05:31] LABS: Basophils Percent Auto 0.1 % (0.2-2.0); Hematocrit 26.9 % (36.0-48.0); Hemoglobin 8.9 g/dL (12.0-16.0); Immature Granulocytes Abs Auto 0.11 10^3/uL (0.00-0.03); Immature Granulocytes Pct Auto 0.9 % (0.0-0.5); Lymphocytes Absolute Auto 0.4 10^3/uL (1.2-3.8); Lymphocytes Percent Auto 3.3 % (20.5-60.0); Mean Corpuscular HGB Conc 33.1 g/dL (29.9-35.2); Mean Corpuscular Hemoglobin 29.1 pg (26.7-34.0); Mean Corpuscular Volume 87.9 fL (81.0-99.0); Mean Platelet Volume 10.6 fL (9.5-13.5); Monocytes Absolute Auto 1.1 10^3/uL (0.3-0.8); Monocytes Percent Auto 9.1 % (1.7-12.0); Neutrophils Absolute Auto 10.2 10^3/uL (1.4-6.5); Neutrophils Percent Auto 86.6 % (43.0-75.0); Platelet Count 135 10^3/uL (150-450); Red Blood Count 3.06 10^6/uL (4.20-5.40); Red Cell Distribution Width 13.7 % (11.0-15.0); White Blood Count 11.8 10^3/uL (4.0-11.0)
[2023-09-03] MEDS: TRAMADOL HCL 50 MG TABLET PO (05:44)
[2023-09-03] MEDS: LEVOTHYROXINE SODIUM 125 MCG TABLET PO (05:46)
[2023-09-03 05:52] LABS: Alanine Aminotransferase 21 U/L (14-59); Albumin Globulin Ratio 0.6; Albumin Level 2.4 g/dL (3.4-5.0); Alkaline Phosphatase 43 U/L (46-116); Anion Gap 12.9; Aspartate Amino Transferase 46 U/L (15-37); BUN Creatinine Ratio 26.8; Bilirubin Total 0.5 mg/dL (0.2-1.0); Calcium 7.8 mg/dL (8.5-10.1); Carbon Dioxide 19.9 mmol/L (21.0-32.0); Chloride 103 mmol/L (98-107); Estimated GFR (African America 39 (>=60); Estimated GFR (Non-African Ame 32 (>=60); Globulin 3.8 g/dL; Glucose 131 mg/dL (74-106); Potassium 3.8 mmol/L (3.5-5.1); Sodium 132 mmol/L (136-145); Total Protein 6.2 g/dL (6.4-8.2)
[2023-09-03 05:58] LABS: Creatine Kinase 600 U/L (26-192)
[2023-09-03 06:01] LABS: Thyroid Stimulating Hormone 0.063 uIU/mL (0.358-3.740)
--- NOTE | 2023-09-03 09:09 | PC.NURSE ---
patient refused flu shot at this time. patient wants to get flu shot and covid vaccine at her pharmacy with her son she states.
[2023-09-03] MEDS: PREDNISONE 20 MG TABLET PO (09:16)
[2023-09-03] MEDS: CARVEDILOL 12.5 MG TABLET PO ×2 (09:16→20:25)
[2023-09-03] MEDS: AMLODIPINE BESYLATE 5 MG TABLET 10 MG PO (09:16)
[2023-09-03] MEDS: CEFTRIAXONE 1,000 MG in 0.9 % SODIUM CHLORIDE 50 ML 100 MG IV (09:19)
[2023-09-03 10:49] LABS: Glucometer 147 mg/dL (74-106)
--- NOTE | 2023-09-03 10:53 | ECG_ITS ---
[facility] Test Date: 2023-09-03 Pat Name: RICHARD HUNT Department: Room: 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
--- NOTE | 2023-09-03 10:57 | PT.DAILY ---
Physical Therapy Daily Note PT Daily Note/Assess Start: 09/03/23 10:43 Freq: Status: Active Protocol: Document 09/03/23 10:54 KOBE (Rec: 09/03/23 10:57 KOBE [id number]) Physical Therapy Daily Note/Assessment Time In/Time Out Time In 10:30 Time Out 10:40 Pain In Pain N/A Pain Out Pain N/A Subjective Subjective Pt supine upon arrival. Reports high pain this morning in low back and hips. Declines wanting to get up. Wishes to rest but then agrees to bed level ther ex. Therapeutic Exercise Time Therapeutic Exercise Minutes (minutes) 8 Therapeutic Exercise Units 1 Therapeutic Exercise Treatment Therapeutic Exercise Treatment Pt performs bilat AP, QS, GS, SAQ 10x. AAROM for heelslides, SLR, abd slides and ir/er hip rocks 10x ea. Attempts upper body AAROM but pt reports this hurts her back and sides too much and declines further activity. Pt remains supine with call light in reach and needs met. Total Physical Therapy Time Total Therapy Minutes 8 Total Physical Therapy Units 1 Summary Daily Note Summary Poor tolerance with session - limited due to pain. Requires AA for most ex along with motivation to complete.
--- NOTE | 2023-09-03 11:23 | P.PN_ITS ---
Patient seen and examined, agree with assessment and plan below. Reports continued pain but slowly improving. Labs improved and improved appetite. Continue antibiotics and IV fluids. Continue PT for weakness and likely will need SNF upon discharge. Diagnosis: 1. UTI 2. JOSE 3. Dehydration 4. Paroxysmal afib 5. Rhabdomyolysis 6. Elevated troponin 7. Lumbar DDD 8. DM2 9. HTN 10. CKD 3b Progress Note: Subjective Subjective Interval history: Date/Time of Exam: 09/03/23 1012 Patient is currently bed. She reports feeling a little improved from yesterday but continues to complain of back pain and also notes new bilateral shoulder and chest wall pain. She reports this chest wall pain is worse with deep inspiration and with position changes, especially when rolling onto her sides. Otherwise she denies complaints of chest pain, shortness of breath, abdominal discomfort, N/V/D or any other acute complaint. She is improving since yesterday and has remained afebrile. Exam Constitutional Vital Signs, click to edit/add: Last Vital Signs Temp 97.9 F 09/03/23 09:11 Pulse 66 09/03/23 10:08 Resp 18 09/03/23 09:11 BP 132/75 09/03/23 09:11 Pulse Ox 95 09/03/23 09:11 O2 Del Method Room Air 09/03/23 09:11 Common normals: no apparent distress and alert General appearance: cooperative Orientation/consciousness: Yes awake HENOH Common normals: normocephalic, head/scalp atraumatic and hearing grossly normal bilaterally Head and scalp: normocephalic and atraumatic Mouth: moist mucous membranes abnormal Details: cracked Eye Common normals: PERRL, EOMs intact bilaterally, conjunctivae normal and no scleral icterus General eye: normal appearance of both eyes Conjunctiva: conjunctiva(e) normal Pupil: PERRL Neck & C-Spine Common normals: no JVD Chest Common normals: inspection of chest normal Chest: symmetrical chest wall rise Respiratory Common normals: normal respiratory effort, no use of accessory muscles and clear to auscultation bilaterally Effort & inspection: able to speak in complete sentences Auscultation: clear to auscultation bilaterally Cardio Common normals: no JVD, regular rate, regular rhythm, S1 normal heart sound, S2 normal heart sound, no gallops, no clicks, no murmurs, no rub and peripheral pulses 2+ throughout Rate: regular rate Rhythm: regular rhythm Heart sounds: S1 normal and S2 normal Peripheral pulses: pulses 2+ throughout GI Common normals: Normal to inspection, nondistended, normoactive bowel sounds present, soft to palpation and no hepatosplenomegaly Palpation: soft, tender (Mild suprapubic tenderness, improved from yesterday) and no hepatosplenomegaly Bladder/kidney exam: bladder normal to palpation Extremity Common normals: normal to inspection and no calf tenderness General: no clubbing, no cyanosis and no edema Neuro Common normals: oriented x3, CN's II-XII intact bilaterally, moves all extremities, no focal motor deficits and no sensory deficits noted Sensorium/orientation: awake, alert, oriented to person and oriented to place; not oriented to time (likely baseline) Psych Common normals: mental status grossly normal and cooperative Attention/concentration: attention grossly intact Insight: limited Judgement: limited Progress Note: Objective Labs Labs: Short CBC 09/03/23 Range/Units 04:57 WBC 11.8 H (4.0-11.0) 10^3/uL Hgb 8.9 L (12.0-16.0) g/dL Hct 26.9 L (36.0-48.0) % Plt Count 135 L (150-450) 10^3/uL BMP 09/03/23 04:57 Sodium 132 L Potassium 3.8 Chloride 103 Carbon Dioxide 19.9 L BUN 41.0 H Creatinine 1.53 H Glucose 131 H Calcium 7.8 L Cardiac Enzymes 09/02/23 09/03/23 Range/Units 12:04 04:57 Total Creatine Kinase 1736 H* 600 H* (26-192) U/L Liver Function 09/03/23 Range/Units 04:57 Total Bilirubin 0.5 (0.2-1.0) mg/dL AST 46 H (15-37) U/L ALT 21 (14-59) U/L Alkaline Phosphatase 43 L (46-116) U/L Albumin 2.4 L (3.4-5.0) g/dL Urine 09/02/23 Range/Units 14:01 Urine Color Lt. yellow (YELLOW) Urine Clarity Clear (CLEAR) Urine pH 5.5 (5.0-9.0) Ur Specific [place] 1.025 (1.005-1.025) Urine Protein >=300 A (NEG/TRACE) mg/dL Urine Glucose (UA) Negative (NEGATIVE) mg/dL ECG Prior ECG tracings: available for review Interpretation: Atrial fibrillation Marked left axis deviation Compared to ECG 09/02/2023 11:53:37 Ventricular premature complexes no longer present Apparent conduction of supraventricular beats no longer present Imaging 2D Echo Complete: Attestation: I have reviewed the pertinent imaging results. Radiologist's impression: CONCLUSION: 1. Normal left ventricular size and systolic function. LVEF is 60%. 2. Mildly dilated right ventricle with normal systolic function. 3. Grade 2 diastolic dysfunction. 4. Moderate biatrial dilatation. 5. Mildly calcified aortic valve with no significant stenosis. 6. No significant valvular dysfunction. 7. Severely elevated right-sided pressures. RVSP is 62 mmHg. Progress Note: A&P Assessment and Plan (1) Urinary tract infection: Assessment and Plan: ACUTE * Remains afebrile * Urine Cx growing Strep agalactiae - (group b [place] Count >100,000 CFU/ml. Final C&S pending * No clinical concern for sepsis at this time but pt is at risk. Monitor closely * Continue Rocephin 1gm IVPB daily - adequately covers group b strep * CBC, CMP daily Qualifiers: Urinary tract infection type: acute cystitis Hematuria presence: with hematuria Qualified Code(s): N30.01 - Acute cystitis with hematuria (2) Rhabdomyolysis: Assessment and Plan: ACUTE Laboratory Tests 09/02/23 09/03/23 12:04 04:57 Total Creatine Kinase 1736 H* 600 H* * CPK trending down nicely * Continue LR IVF at 100/hr * Repeat CPK in AM to monitor * See JOSE below Qualifiers: Rhabdomyolysis type: traumatic Encounter type: initial encounter Qualified Code(s): T79.6XXA - Traumatic ischemia of muscle, initial encounter (3) Acute kidney injury superimposed on CKD: Assessment and Plan: ACUTE Laboratory Tests 09/02/23 09/03/23 07:35 04:57 BUN 35.0 H 41.0 H Creatinine 1.73 H 1.53 H Est GFR (Non-Af Amer) 28 L 32 L * Improving * JOSE multifactorial including UTI, dehydration, and rhabdomyolysis * Continue LR at 100 ml/hr * Continue to hold all renal toxic medications * Treat UTI as above * Baseline CKD3b - see below * CMP daily (4) Acute dehydration: Assessment and Plan: ACUTE * Improving but pre-renal azotemia persists supported by clinically dry presentation * D/t poor appetite and difficulty ambulating 2/2 severe back pain, likely exacerbated by baseline suspected dementia * Continue maintenance IVF at 100/hr * Strict I&O and daily weights * CMP daily (5) Atrial fibrillation with controlled ventricular rate: Assessment and Plan: ACUTE * New onset, suspect paroxysmal * Tele appears to be NSR during exam * TSH * Controlled rate continues - consider exchanging coreg for metoprolol if RVR occurs per cardiology recommmendation * [id number] score of 5 - high risk * Continue therapeutic lovenox 1mg/kg BID (cardiology concurs) - pharmacy to renally dose * Pt does not fall frequently, but is at risk. Ambulates with cane or walker. * Convert to renally dosed Eliquis - Cardiology recommends figure skater anticoagulation in absence of significant contraindication * Consult cardiology - we appreciate their assistance with this pt's care * Serial EKGs and troponins to r/o ACS as inciting event w/ mild bump in troponins in the ED * Troponins mildly elevated but relatively flat * likely Type 2 MS d/t demand in setting of JOSE/UTI/new onset a-fib * 2D Echo - Preserved LVEF 60%. Grade 2 diastolic HF. No valvular dysfunction noted. Severe RV pressure (RVSP is 62 mmHg.) * Tele monitoring * Electrolytes WNL * TSH supressed suggestion supratherapeutic levothyroxine dosing. Decrease to 112 mcg daily. * Possible contributor to a-fib (6) Acute urinary retention: Assessment and Plan: ACUTE * Valle catheter inserted on afternoon of admission w/ >1000ml urine in bladder * Suspect 2/2 UTI and Detrol LA * Detrol held - likely d/c at discharge * Consider outpatient referral to urology pending clinical course * Attempt void trial in AM - if unsuccessful will likely be discharged to SNF w/ catheter in place (7) Elevated troponin I level: Assessment and Plan: ACUTE * Mild elevation that was relatively flat, trending down this morning * Likely Type 2 MS from demand ischemia in setting of JOSE, UTI, and new onset a- fib * Pt remains completely asymptomatic * No clinical concern for ACS (8) Strain of lumbar region: Assessment and Plan: ACUTE * No known fall or inciting event for severe back pain * CT L-spine and pelvis XR neg for acute fx * Continue pain management: * Tramadol 50-100mg PRN for mod to severe pain * Lidoderm patch to affected area q12h * Prednisone 20 mg PO daily x 5 days * Consider MRI L-spine pending clinical course as nerve compression or occult compression fx remain in the differential * PT/OT consults for strengthening and likely SNF evaluation. Qualifiers: Encounter type: initial encounter Qualified Code(s): S39.012A - Strain of muscle, fascia and tendon of lower back, initial encounter (9) Diabetes type 2, controlled: Assessment and Plan: CHRONIC * Pt taken off all hyperglycemia medications recently d/t weight loss and improved BS control * Hyperglycemia improving * Check A1C in AM to fully assess for adequate BS control * ACHS glucometer checks * Regular diet d/t suppressed appetite, consider CC diet pending clinical course * Low SSI for glucose correction Qualifiers: Diabetes mellitus figure skater insulin use: without figure skater use Diabetes mellitus complication status: with kidney complications Diabetes mellitus complication detail: with chronic kidney disease Chronic kidney disease stage: stage 3 (moderate) Qualified Code(s): E11.22 - Type 2 diabetes mellitus with diabetic chronic kidney disease; N18.30 - Chronic kidney disease, stage 3 unsp ecified (10) Chronic kidney disease, stage 3b: Assessment and Plan: CHRONIC * Baseline CKD3b - lab ranges: * BUN 33-50 * Cr 1.3-1.6 * eGFR 30-38 * See JOSE above (11) High cholesterol: Assessment and Plan: CHRONIC * Continue home statin (12) Hypertension: Assessment and Plan: CHRONIC * Continue home amlodipine and Coreg Qualifiers: Hypertension type: primary hypertension Qualified Code(s): I10 - Essential (primary) hypertension (13) Hypothyroidism: Assessment and Plan: CHRONIC * Supratherapeutic TSH on AM labs * Reduce home levothyroxine dosing Qualifiers: Hypothyroidism type: acquired Qualified Code(s): E03.9 - Hypothyroidism, unspecified (14) Nocturia: Assessment and Plan: CHRONIC * Hold home bedtime Detrol LA in setting of acute UTI and urinary retention * Likely d/c at discharge d/t urinary retention pending clinical course
--- NOTE | 2023-09-03 11:23 | PM.PN ---
Progress Note: Subjective Subjective Interval history: Date/Time of Exam: 09/03/23 1012 Patient is currently bed. She reports feeling a little improved from yesterday but continues to complain of back pain and also notes new bilateral shoulder and chest wall pain. She reports this chest wall pain is worse with deep inspiration and with position changes, especially when rolling onto her sides. Otherwise she denies complaints of chest pain, shortness of breath, abdominal discomfort, N/V/D or any other acute complaint. She is improving since yesterday and has remained afebrile. Exam Constitutional Vital Signs, click to edit/add: Last Vital Signs Temp 97.9 F 09/03/23 09:11 Pulse 66 09/03/23 10:08 Resp 18 09/03/23 09:11 BP 132/75 09/03/23 09:11 Pulse Ox 95 09/03/23 09:11 O2 Del Method Room Air 09/03/23 09:11 Common normals: no apparent distress and alert General appearance: cooperative Orientation/consciousness: Yes awake HENCO Common normals: normocephalic, head/scalp atraumatic and hearing grossly normal bilaterally Head and scalp: normocephalic and atraumatic Mouth: moist mucous membranes abnormal Details: cracked Eye Common normals: PERRL, EOMs intact bilaterally, conjunctivae normal and no scleral icterus General eye: normal appearance of both eyes Conjunctiva: conjunctiva(e) normal Pupil: PERRL Neck & C-Spine Common normals: no JVD Chest Common normals: inspection of chest normal Chest: symmetrical chest wall rise Respiratory Common normals: normal respiratory effort, no use of accessory muscles and clear to auscultation bilaterally Effort & inspection: able to speak in complete sentences Auscultation: clear to auscultation bilaterally Cardio Common normals: no JVD, regular rate, regular rhythm, S1 normal heart sound, S2 normal heart sound, no gallops, no clicks, no murmurs, no rub and peripheral pulses 2+ throughout Rate: regular rate Rhythm: regular rhythm Heart sounds: S1 normal and S2 normal Peripheral pulses: pulses 2+ throughout GI Common normals: Normal to inspection, nondistended, normoactive bowel sounds present, soft to palpation and no hepatosplenomegaly Palpation: soft, tender (Mild suprapubic tenderness, improved from yesterday) and no hepatosplenomegaly Bladder/kidney exam: bladder normal to palpation Extremity Common normals: normal to inspection and no calf tenderness General: no clubbing, no cyanosis and no edema Neuro Common normals: oriented x3, CN's II-XII intact bilaterally, moves all extremities, no focal motor deficits and no sensory deficits noted Sensorium/orientation: awake, alert, oriented to person and oriented to place; not oriented to time (likely baseline) Psych Common normals: mental status grossly normal and cooperative Attention/concentration: attention grossly intact Insight: limited Judgement: limited Progress Note: Objective Labs Labs: Short CBC 09/03/23 Range/Units 04:57 WBC 11.8 H (4.0-11.0) 10^3/uL Hgb 8.9 L (12.0-16.0) g/dL Hct 26.9 L (36.0-48.0) % Plt Count 135 L (150-450) 10^3/uL BMP 09/03/23 04:57 Sodium 132 L Potassium 3.8 Chloride 103 Carbon Dioxide 19.9 L BUN 41.0 H Creatinine 1.53 H Glucose 131 H Calcium 7.8 L Cardiac Enzymes 09/02/23 09/03/23 Range/Units 12:04 04:57 Total Creatine Kinase 1736 H* 600 H* (26-192) U/L Liver Function 09/03/23 Range/Units 04:57 Total Bilirubin 0.5 (0.2-1.0) mg/dL AST 46 H (15-37) U/L ALT 21 (14-59) U/L Alkaline Phosphatase 43 L (46-116) U/L Albumin 2.4 L (3.4-5.0) g/dL Urine 09/02/23 Range/Units 14:01 Urine Color Lt. yellow (YELLOW) Urine Clarity Clear (CLEAR) Urine pH 5.5 (5.0-9.0) Ur Specific [place] 1.025 (1.005-1.025) Urine Protein >=300 A (NEG/TRACE) mg/dL Urine Glucose (UA) Negative (NEGATIVE) mg/dL ECG Prior ECG tracings: available for review Interpretation: Atrial fibrillation Marked left axis deviation Compared to ECG 09/02/2023 11:53:37 Ventricular premature complexes no longer present Apparent conduction of supraventricular beats no longer present Imaging 2D Echo Complete: Attestation: I have reviewed the pertinent imaging results. Radiologist's impression: CONCLUSION: 1. Normal left ventricular size and systolic function. LVEF is 60%. 2. Mildly dilated right ventricle with normal systolic function. 3. Grade 2 diastolic dysfunction. 4. Moderate biatrial dilatation. 5. Mildly calcified aortic valve with no significant stenosis. 6. No significant valvular dysfunction. 7. Severely elevated right-sided pressures. RVSP is 62 mmHg. Progress Note: A&P Assessment and Plan (1) Urinary tract infection: Assessment and Plan: ACUTE Remains afebrile Urine Cx growing Strep agalactiae - (group b [place] Count >100,000 CFU/ml. Final C&S pending No clinical concern for sepsis at this time but pt is at risk. Monitor closely Continue Rocephin 1gm IVPB daily - adequately covers group b strep CBC, CMP daily Qualifiers: Urinary tract infection type: acute cystitis Hematuria presence: with hematuria Qualified Code(s): N30.01 - Acute cystitis with hematuria (2) Rhabdomyolysis: Assessment and Plan: ACUTE Laboratory Tests 09/02/23 09/03/23 12:04 04:57 Total Creatine Kinase 1736 H* 600 H* CPK trending down nicely Continue LR IVF at 100/hr Repeat CPK in AM to monitor See JOSE below Qualifiers: Rhabdomyolysis type: traumatic Encounter type: initial encounter Qualified Code(s): T79.6XXA - Traumatic ischemia of muscle, initial encounter (3) Acute kidney injury superimposed on CKD: Assessment and Plan: ACUTE Laboratory Tests 09/02/23 09/03/23 07:35 04:57 BUN 35.0 H 41.0 H Creatinine 1.73 H 1.53 H Est GFR (Non-Af Amer) 28 L 32 L Improving JOSE multifactorial including UTI, dehydration, and rhabdomyolysis Continue LR at 100 ml/hr Continue to hold all renal toxic medications Treat UTI as above Baseline CKD3b - see below CMP daily (4) Acute dehydration: Assessment and Plan: ACUTE Improving but pre-renal azotemia persists supported by clinically dry presentation D/t poor appetite and difficulty ambulating 2/2 severe back pain, likely exacerbated by baseline suspected dementia Continue maintenance IVF at 100/hr Strict I&O and daily weights CMP daily (5) Atrial fibrillation with controlled ventricular rate: Assessment and Plan: ACUTE New onset, suspect paroxysmal Tele appears to be NSR during exam TSH Controlled rate continues - consider exchanging coreg for metoprolol if RVR occurs per cardiology recommmendation [id number] score of 5 - high risk Continue therapeutic lovenox 1mg/kg BID (cardiology concurs) - pharmacy to renally dose Pt does not fall frequently, but is at risk. Ambulates with cane or walker. Convert to renally dosed Eliquis - Cardiology recommends terminal computer operator anticoagulation in absence of significant contraindication Consult cardiology - we appreciate their assistance with this pt's care Serial EKGs and troponins to r/o ACS as inciting event w/ mild bump in troponins in the ED Troponins mildly elevated but relatively flat likely Type 2 NC d/t demand in setting of JOSE/UTI/new onset a-fib 2D Echo - Preserved LVEF 60%. Grade 2 diastolic HF. No valvular dysfunction noted. Severe RV pressure (RVSP is 62 mmHg.) Tele monitoring Electrolytes WNL TSH supressed suggestion supratherapeutic levothyroxine dosing. Decrease to 112 mcg daily. Possible contributor to a-fib (6) Acute urinary retention: Assessment and Plan: ACUTE Valle catheter inserted on afternoon of admission w/ >1000ml urine in bladder Suspect 2/2 UTI and Detrol LA Detrol held - likely d/c at discharge Consider outpatient referral to urology pending clinical course Attempt void trial in AM - if unsuccessful will likely be discharged to SNF w/ catheter in place (7) Elevated troponin I level: Assessment and Plan: ACUTE Mild elevation that was relatively flat, trending down this morning Likely Type 2 NC from demand ischemia in setting of JOSE, UTI, and new onset a-fib Pt remains completely asymptomatic No clinical concern for ACS (8) Strain of lumbar region: Assessment and Plan: ACUTE No known fall or inciting event for severe back pain CT L-spine and pelvis XR neg for acute fx Continue pain management: Tramadol 50-100mg PRN for mod to severe pain Lidoderm patch to affected area q12h Prednisone 20 mg PO daily x 5 days Consider MRI L-spine pending clinical course as nerve compression or occult compression fx remain in the differential PT/OT consults for strengthening and likely SNF evaluation. Qualifiers: Encounter type: initial encounter Qualified Code(s): S39.012A - Strain of muscle, fascia and tendon of lower back, initial encounter (9) Diabetes type 2, controlled: Assessment and Plan: CHRONIC Pt taken off all hyperglycemia medications recently d/t weight loss and improved BS control Hyperglycemia improving Check A1C in AM to fully assess for adequate BS control ACHS glucometer checks Regular diet d/t suppressed appetite, consider CC diet pending clinical course Low SSI for glucose correction Qualifiers: Diabetes mellitus terminal computer operator insulin use: without fpc use Diabetes mellitus complication status: with kidney complications Diabetes mellitus complication detail: with chronic kidney disease Chronic kidney disease stage: stage 3 (moderate) Qualified Code(s): E11.22 - Type 2 diabetes mellitus with diabetic chronic kidney disease; N18.30 - Chronic kidney disease, stage 3 unspecified (10) Chronic kidney disease, stage 3b: Assessment and Plan: CHRONIC Baseline CKD3b - lab ranges: BUN 33-50 Cr 1.3-1.6 eGFR 30-38 See JOSE above (11) High cholesterol: Assessment and Plan: CHRONIC Continue home statin (12) Hypertension: Assessment and Plan: CHRONIC Continue home amlodipine and Coreg Qualifiers: Hypertension type: primary hypertension Qualified Code(s): I10 - Essential (primary) hypertension (13) Hypothyroidism: Assessment and Plan: CHRONIC Supratherapeutic TSH on AM labs Reduce home levothyroxine dosing Qualifiers: Hypothyroidism type: acquired Qualified Code(s): E03.9 - Hypothyroidism, unspecified (14) Nocturia: Assessment and Plan: CHRONIC Hold home bedtime Detrol LA in setting of acute UTI and urinary retention Likely d/c at discharge d/t urinary retention pending clinical course
[2023-09-03] MEDS: LIDOCAINE 5% PATCH 1 PATCH TOPICAL (11:29)
[2023-09-03] MEDS: TRAMADOL HCL 50 MG TABLET 100 MG PO ×2 (11:30→20:24)
--- NOTE | 2023-09-03 12:32 | CM.NOTE ---
Rounds made with Dr. Murdock, no discharge today. PT and OT will continue working with pt.
[2023-09-03] MEDS: ENOXAPARIN SODIUM 100 MG/ML SYRINGE 80 MG SUBQ (13:44)
--- NOTE | 2023-09-03 14:06 | SWNOTE1 ---
SW spoke with pt in regards to the [facility]. Pt does remember she was there back in September and stayed for a month. SW let her know it is recommended to go skilled for some rehab for a short time again. Pt is agreeable and she does want [facility] as she has been there before and she did not mind her stay. [facility] is able to accept once pt is medically stable for discharge.
--- NOTE | 2023-09-03 14:50 | CM.NOTE ---
Important Message From Medicare discussed with pt, pt verbalizes understanding and signs paper. Original given to pt and copy placed on pt's chart.
--- NOTE | 2023-09-03 15:46 | SWNOTE1 ---
SW sent updates to [facility].
[2023-09-03 16:09] LABS: Glucometer 193 mg/dL (74-106)
[2023-09-03 20:33] LABS: Glucometer 180 mg/dL (74-106)
[2023-09-03] MEDS: INSULIN ASPART 300 UNIT/3 ML PEN SUBQ (21:23)
[2023-09-04] VITALS (16 sets, daily range): BP systolic 140–154; BP diastolic 56–79; PULSE 54–76; RESP 16–20; TEMP 36.6–36.7; O2SAT 95–97
[2023-09-04] MEDS: TRAMADOL HCL 50 MG TABLET 100 MG PO (04:04)
[2023-09-04] MEDS: LACTATED RINGER'S SOLUTION 1,000 ML 100 ML IV (04:08)
[2023-09-04] MEDS: LEVOTHYROXINE SODIUM 125 MCG TABLET 112 MCG PO (05:43)
[2023-09-04 06:57] LABS: Basophils Percent Auto 0.1 % (0.2-2.0); Hematocrit 28.1 % (36.0-48.0); Hemoglobin 9.3 g/dL (12.0-16.0); Immature Granulocytes Abs Auto 0.06 10^3/uL (0.00-0.03); Immature Granulocytes Pct Auto 0.6 % (0.0-0.5); Lymphocytes Absolute Auto 0.3 10^3/uL (1.2-3.8); Lymphocytes Percent Auto 3.1 % (20.5-60.0); Mean Corpuscular HGB Conc 33.1 g/dL (29.9-35.2); Mean Corpuscular Hemoglobin 28.5 pg (26.7-34.0); Mean Corpuscular Volume 86.2 fL (81.0-99.0); Mean Platelet Volume 10.3 fL (9.5-13.5); Monocytes Absolute Auto 0.8 10^3/uL (0.3-0.8); Monocytes Percent Auto 7.7 % (1.7-12.0); Neutrophils Absolute Auto 8.7 10^3/uL (1.4-6.5); Neutrophils Percent Auto 88.5 % (43.0-75.0); Platelet Count 147 10^3/uL (150-450); Red Blood Count 3.26 10^6/uL (4.20-5.40); White Blood Count 9.8 10^3/uL (4.0-11.0)
[2023-09-04 07:03] LABS: Estimated Average Glucose 108 mg/dL; Glycohemoglobin A1C 5.4 % (4.5-6.2)
[2023-09-04 07:05] LABS: Creatine Kinase 244 U/L (26-192)
[2023-09-04 07:08] LABS: Alanine Aminotransferase 21 U/L (14-59); Albumin Globulin Ratio 0.6; Albumin Level 2.2 g/dL (3.4-5.0); Alkaline Phosphatase 48 U/L (46-116); Anion Gap 14.4; Aspartate Amino Transferase 31 U/L (15-37); BUN Creatinine Ratio 35.3; Bilirubin Total 0.3 mg/dL (0.2-1.0); Calcium 7.9 mg/dL (8.5-10.1); Carbon Dioxide 20.6 mmol/L (21.0-32.0); Chloride 101 mmol/L (98-107); Estimated GFR (African America 53 (>=60); Estimated GFR (Non-African Ame 44 (>=60); Globulin 3.9 g/dL; Glucose 149 mg/dL (74-106); Sodium 132 mmol/L (136-145); Total Protein 6.1 g/dL (6.4-8.2)
[2023-09-04] MEDS: CARVEDILOL 12.5 MG TABLET PO ×2 (08:21→20:42)
[2023-09-04] MEDS: PREDNISONE 20 MG TABLET PO (08:21)
[2023-09-04] MEDS: AMLODIPINE BESYLATE 5 MG TABLET 10 MG PO (08:21)
[2023-09-04] MEDS: APIXABAN 5 MG TABLET 2.5 MG PO ×2 (08:21→20:42)
[2023-09-04] MEDS: CEFTRIAXONE 1,000 MG in 0.9 % SODIUM CHLORIDE 50 ML 100 MG IV (10:04)
[2023-09-04 11:21] LABS: Glucometer 173 mg/dL (74-106)
[2023-09-04] MEDS: LIDOCAINE 5% PATCH 1 PATCH TOPICAL (11:27)
--- NOTE | 2023-09-04 11:35 | CM.NOTE ---
Rounds made with Dr. Murdock. Gadile Hameed complaining of generalized pain. Dr. Murdock will change medications. Ms. Hameed verbalizes understanding.
--- NOTE | 2023-09-04 12:24 | P.PN_ITS ---
Patient seen and examined, agree with assessment and plan below. Reports continued pain and medication not helping. Stop ultram and try percocet. Stressed need to get out of bed and work with PT. Labs improved and improved appetite. Continue antibiotics and IV fluids. Continue PT for weakness and likely will need SNF upon discharge. Diagnosis: 1. UTI 2. JOSE 3. Dehydration 4. Paroxysmal afib 5. Rhabdomyolysis 6. Elevated troponin 7. Lumbar DDD 8. DM2 9. HTN 10. CKD 3b Progress Note: Subjective Subjective Interval history: Date/Time of Exam: 09/04/23 1017 Patient is sitting up in a bedside chair after strong encouragement by staff of the need to get up out of bed. The pt's back and hip pain has been poorly controlled with has contributed to her reluctance to get up. She continues to complain of low back/bilat hip pain that radiates up to her R shoulder. She denies complaints of chest pain, shortness of breath, abdominal discomfort, N/V/D or any other acute complaint. She is improving since yesterday and has remained afebrile. She is still clinically dry and required continued IVF administration. Likely discharge to a local SNF in the next 24-48 hrs. Exam Constitutional Vital Signs, click to edit/add: Last Vital Signs Temp 98 F 09/04/23 08:00 Pulse 61 09/04/23 12:00 Resp 20 09/04/23 08:00 BP 140/79 09/04/23 08:00 Pulse Ox 95 09/04/23 08:00 O2 Del Method Room Air 09/04/23 08:00 Common normals: no apparent distress, alert and well nourished Orientation/consciousness: Yes awake, Yes oriented to person and Yes oriented to place; not oriented to time (likely baseline) [facility] Common normals: normocephalic, head/scalp atraumatic, hearing grossly normal bilaterally, external ears normal and external nose normal Head and scalp: normocephalic and atraumatic Face and sinus: normal facial exam Nose: external nose normal External ear: external ears normal Mouth: moist mucous membranes abnormal Details: cracked Eye Common normals: PERRL, EOMs intact bilaterally, conjunctivae normal and no scleral icterus General eye: normal appearance of both eyes Alignment: alignment normal Eyelid: eyelids normal Conjunctiva: conjunctiva(e) normal Pupil: PERRL Neck & C-Spine Common normals: full ROM, supple and no JVD Chest Common normals: inspection of chest normal Chest: symmetrical chest wall rise Respiratory Common normals: normal respiratory effort, no retractions, no use of accessory muscles and clear to auscultation bilaterally Effort & inspection: able to speak in complete sentences Auscultation: clear to auscultation bilaterally Cardio Common normals: no JVD, regular rate, regular rhythm, S1 normal heart sound, S2 normal heart sound, no gallops, no clicks, no rub and peripheral pulses 2+ throughout Rate: regular rate Rhythm: regular rhythm (Currently in SR on tele) Heart sounds: S1 normal, S2 normal and murmur (HSM 2/6) Peripheral pulses: pulses 2+ throughout GI Common normals: Normal to inspection, nondistended, normoactive bowel sounds present, soft to palpation, non-tender, no hepatosplenomegaly, no masses and no bruits Palpation: soft, tender (Mild suprapubic tenderness, improved from yesterday), no hepatosplenomegaly and bladder palpation abnormal Common normals: no CVA tenderness Bladder/kidney exam: bladder normal to palpation and no CVA tenderness Bimanual exam- vagina & uterus: bladder normal to palpation Back & Pelvis Common normals: no CVA tenderness and thoracic and lumbar spine normal to inspection Lumbar spine/lower back: ROM limited and lumbar spinal tenderness Extremity Common normals: normal to inspection, normal capillary refill, no calf tenderness and no pedal edema General: normal exam except as noted; no clubbing, no cyanosis and no edema Neuro [place] Coma Scale: GCS not evaluated Common normals: oriented x3, CN's II-XII intact bilaterally, moves all extremities, no focal motor deficits and no sensory deficits noted Sensorium/orientation: awake, alert, oriented to person and oriented to place; not oriented to time (likely baseline) Speech: speech normal Psych Common normals: mental status grossly normal, thought process normal, cooperative, affect normal and activity/motor behavior normal Thought process: normal thought process Judgement: limited Progress Note: Objective Labs Labs: Short CBC 09/04/23 Range/Units 06:24 WBC 9.8 (4.0-11.0) 10^3/uL Hgb 9.3 L (12.0-16.0) g/dL Hct 28.1 L (36.0-48.0) % Plt Count 147 L (150-450) 10^3/uL BMP 09/04/23 06:24 Sodium 132 L Potassium 4.0 Chloride 101 Carbon Dioxide 20.6 L BUN 41.0 H Creatinine 1.16 H Glucose 149 H Calcium 7.9 L Cardiac Enzymes 09/04/23 Range/Units 06:24 Total Creatine Kinase 244 H (26-192) U/L Liver Function 09/04/23 Range/Units 06:24 Total Bilirubin 0.3 (0.2-1.0) mg/dL AST 31 (15-37) U/L ALT 21 (14-59) U/L Alkaline Phosphatase 48 (46-116) U/L Albumin 2.2 L (3.4-5.0) g/dL Pulse Oximetry Attestation: I have reviewed the pertinent pulse oximetry results. ECG Attestation: ?I have reviewed the pertinent ECG results. Prior ECG tracings: available for review Interpretation: SINUS RHYTHM Compared to ECG 09/02/23 14:24:41 Atrial fibrillation no longer present Left-axis deviation no longer present Progress Note: A&P Assessment and Plan (1) Urinary tract infection: Assessment and Plan: ACUTE * Remains afebrile, suprapubic tenderness resolved * Urine Cx growing Strep agalactiae - Sensitive to cephalosporins * Continue IVPB Rocephin * Plan to d/c on oral Cefdinir to complete 5 day course if needed * No clinical concern for sepsis at this time * CBC, CMP daily Qualifiers: Hematuria presence: with hematuria Urinary tract infection type: acute cystitis Qualified Code(s): N30.01 - Acute cystitis with hematuria (2) Rhabdomyolysis: Assessment and Plan: ACUTE Laboratory Tests 09/02/23 09/03/23 09/04/23 12:04 04:57 06:24 Total Creatine Kinase 1736 H* 600 H* 244 H * CPK continues trending down nicely - nearly WNL * Continue LR IVF at reduced rate of 75 ml/hr * Repeat CPK in AM to monitor, then likely d/c daily lab * See JOSE below Qualifiers: Encounter type: initial encounter Rhabdomyolysis type: traumatic Qualified Code(s): T79.6XXA - Traumatic ischemia of muscle, initial encounter (3) Acute kidney injury superimposed on CKD: Assessment and Plan: ACUTE Laboratory Tests 09/02/23 09/03/23 09/04/23 07:35 04:57 06:24 BUN 35.0 H 41.0 H 41.0 H Creatinine 1.73 H 1.53 H 1.16 H Est GFR (Non-Af Amer) 28 L 32 L 44 L * Improving/resolving * JOSE multifactorial including UTI, dehydration, and rhabdomyolysis * Reduce LR to 75 ml/hr * Continue to hold all renal toxic medications * Treat UTI as above * Baseline CKD3b - see below * CMP daily (4) Acute dehydration: Assessment and Plan: ACUTE * Slowly improving but pre-renal azotemia persists supported by clinically dry presentation * Continues to require IVF administration, inpatient care * D/t poor appetite and difficulty ambulating 2/2 severe back pain, likely exacerbated by baseline suspected dementia * Continue maintenance IVF at reduced rate of 75 ml/hr for more gentle hydration * Strict I&O and daily weights * CMP daily (5) Atrial fibrillation with controlled ventricular rate: Assessment and Plan: ACUTE * Paroxysmal - currently SR, but goes in and out of a-fib on tele * New onset * Controlled rate continues * Consider exchanging coreg for metoprolol if RVR occurs per cardiology recommmendation * [id number] score of 5 - high risk * Pt does not fall frequently, but is at risk. Ambulates with cane or walker. * Continue renally dosed Eliquis - Cardiology recommends roasterman anticoagulation in absence of significant contraindication * Consult cardiology - we appreciate their assistance with this pt's care * Follow up outpatient in 2-4 weeks * Serial EKGs and troponins to r/o ACS as inciting event w/ mild bump in troponins in the ED * Troponins mildly elevated but relatively flat * likely Type 2 NM d/t demand in setting of JOSE/UTI/new onset a-fib * 2D Echo 09/02/23 - Preserved LVEF 60%. Grade 2 diastolic HF. No valvular dysfunction noted. Severe RV pressure (RVSP is 62 mmHg.) * Tele monitoring * Electrolytes WNL * TSH suppressed suggestion supratherapeutic levothyroxine dosing. * Continue decreased dose of levothyroxine of 112 mcg daily at discharge. Repeat TSH in 6-8 weeks. * Possible contributor to a-fib (6) Acute urinary retention: Assessment and Plan: ACUTE * D/C Valle catheter this morning for void trial * Reinsert if urinary retention recurs - likely d/c to SNF w/ Valle in place * Suspect 2/2 UTI and Detrol LA * Detrol held - likely d/c at discharge * Consider outpatient referral to urology pending clinical course (7) Elevated troponin I level: Assessment and Plan: ACUTE * Resolved to normal * Mild elevation that was relatively flat, trending down this morning * Likely Type 2 NM from demand ischemia in setting of JOSE, UTI, and new onset a- fib * Pt remains completely asymptomatic * No clinical concern for ACS (8) Strain of lumbar region: Assessment and Plan: ACUTE * No known fall or inciting event for severe back pain * CT L-spine and pelvis XR neg for acute fx * Continue pain management: * D.c Tramadol today * start Percocet for improved pain management * Lidoderm patch to affected area q12h * Prednisone 20 mg PO daily x 5 days * Consider MRI L-spine pending clinical course as nerve compression or occult compression fx remain in the differential * PT/OT consults for strengthening and SNF evaluation. Qualifiers: Encounter type: initial encounter Qualified Code(s): S39.012A - Strain of muscle, fascia and tendon of lower back, initial encounter (9) Diabetes type 2, controlled: Assessment and Plan: CHRONIC * Pt taken off all hyperglycemia medications recently d/t weight loss and improved BS control * Hyperglycemia improving * A1C WNL at 5/4 today * ACHS glucometer checks * Regular diet d/t suppressed appetite, consider CC diet pending clinical course * Low SSI for glucose correction, add Levemir 10 un at HS during inpatient admission * Likely d/c insulins at discharge * Suspect hyperglycemia 2/2 acute illness w/ normal A1C Qualifiers: Chronic kidney disease stage: stage 3 (moderate) Diabetes mellitus complication detail: with chronic kidney disease Diabetes mellitus complication status: with kidney complications Diabetes mellitus prison insulin use: without prison use Qualified Code(s): E11.22 - Type 2 diabetes mellitus with diabetic chronic kidney disease; N18.30 - Chronic kidney disease, stage 3 unspecified (10) Chronic kidney disease, stage 3b: Assessment and Plan: CHRONIC * Baseline CKD3b - lab ranges: * BUN 33-50 * Cr 1.3-1.6 * eGFR 30-38 * See JOSE above (11) High cholesterol: Assessment and Plan: CHRONIC * Continue home statin (12) Hypertension: Assessment and Plan: CHRONIC * Continue home amlodipine and Coreg Qualifiers: Hypertension type: primary hypertension Qualified Code(s): I10 - Essential (primary) hypertension (13) Hypothyroidism: Assessment and Plan: CHRONIC * Supratherapeutic TSH on AM labs * Reduce home levothyroxine dosing Qualifiers: Hypothyroidism type: acquired Qualified Code(s): E03.9 - Hypothyroidism, unspecified (14) Nocturia: Assessment and Plan: CHRONIC * Hold home bedtime Detrol LA in setting of acute UTI and urinary retention * Likely d/c at discharge d/t urinary retention pending clinical course
--- NOTE | 2023-09-04 12:24 | PM.PN ---
Progress Note: Subjective Subjective Interval history: Date/Time of Exam: 09/04/23 1017 Patient is sitting up in a bedside chair after strong encouragement by staff of the need to get up out of bed. The pt's back and hip pain has been poorly controlled with has contributed to her reluctance to get up. She continues to complain of low back/bilat hip pain that radiates up to her R shoulder. She denies complaints of chest pain, shortness of breath, abdominal discomfort, N/V/D or any other acute complaint. She is improving since yesterday and has remained afebrile. She is still clinically dry and required continued IVF administration. Likely discharge to a local SNF in the next 24-48 hrs. Exam Constitutional Vital Signs, click to edit/add: Last Vital Signs Temp 98 F 09/04/23 08:00 Pulse 61 09/04/23 12:00 Resp 20 09/04/23 08:00 BP 140/79 09/04/23 08:00 Pulse Ox 95 09/04/23 08:00 O2 Del Method Room Air 09/04/23 08:00 Common normals: no apparent distress, alert and well nourished Orientation/consciousness: Yes awake, Yes oriented to person and Yes oriented to place; not oriented to time (likely baseline) HENMT Common normals: normocephalic, head/scalp atraumatic, hearing grossly normal bilaterally, external ears normal and external nose normal Head and scalp: normocephalic and atraumatic Face and sinus: normal facial exam Nose: external nose normal External ear: external ears normal Mouth: moist mucous membranes abnormal Details: cracked Eye Common normals: PERRL, EOMs intact bilaterally, conjunctivae normal and no scleral icterus General eye: normal appearance of both eyes Alignment: alignment normal Eyelid: eyelids normal Conjunctiva: conjunctiva(e) normal Pupil: PERRL Neck & C-Spine Common normals: full ROM, supple and no JVD Chest Common normals: inspection of chest normal Chest: symmetrical chest wall rise Respiratory Common normals: normal respiratory effort, no retractions, no use of accessory muscles and clear to auscultation bilaterally Effort & inspection: able to speak in complete sentences Auscultation: clear to auscultation bilaterally Cardio Common normals: no JVD, regular rate, regular rhythm, S1 normal heart sound, S2 normal heart sound, no gallops, no clicks, no rub and peripheral pulses 2+ throughout Rate: regular rate Rhythm: regular rhythm (Currently in SR on tele) Heart sounds: S1 normal, S2 normal and murmur (HSM 2/6) Peripheral pulses: pulses 2+ throughout GI Common normals: Normal to inspection, nondistended, normoactive bowel sounds present, soft to palpation, non-tender, no hepatosplenomegaly, no masses and no bruits Palpation: soft, tender (Mild suprapubic tenderness, improved from yesterday), no hepatosplenomegaly and bladder palpation abnormal Common normals: no CVA tenderness Bladder/kidney exam: bladder normal to palpation and no CVA tenderness Bimanual exam- vagina & uterus: bladder normal to palpation Back & Pelvis Common normals: no CVA tenderness and thoracic and lumbar spine normal to inspection Lumbar spine/lower back: ROM limited and lumbar spinal tenderness Extremity Common normals: normal to inspection, normal capillary refill, no calf tenderness and no pedal edema General: normal exam except as noted; no clubbing, no cyanosis and no edema Neuro Felice Coma Scale: GCS not evaluated Common normals: oriented x3, CN's II-XII intact bilaterally, moves all extremities, no focal motor deficits and no sensory deficits noted Sensorium/orientation: awake, alert, oriented to person and oriented to place; not oriented to time (likely baseline) Speech: speech normal Psych Common normals: mental status grossly normal, thought process normal, cooperative, affect normal and activity/motor behavior normal Thought process: normal thought process Judgement: limited Progress Note: Objective Labs Labs: Short CBC 09/04/23 Range/Units 06:24 WBC 9.8 (4.0-11.0) 10^3/uL Hgb 9.3 L (12.0-16.0) g/dL Hct 28.1 L (36.0-48.0) % Plt Count 147 L (150-450) 10^3/uL BMP 09/04/23 06:24 Sodium 132 L Potassium 4.0 Chloride 101 Carbon Dioxide 20.6 L BUN 41.0 H Creatinine 1.16 H Glucose 149 H Calcium 7.9 L Cardiac Enzymes 09/04/23 Range/Units 06:24 Total Creatine Kinase 244 H (26-192) U/L Liver Function 09/04/23 Range/Units 06:24 Total Bilirubin 0.3 (0.2-1.0) mg/dL AST 31 (15-37) U/L ALT 21 (14-59) U/L Alkaline Phosphatase 48 (46-116) U/L Albumin 2.2 L (3.4-5.0) g/dL Pulse Oximetry Attestation: I have reviewed the pertinent pulse oximetry results. ECG Attestation: ?I have reviewed the pertinent ECG results. Prior ECG tracings: available for review Interpretation: SINUS RHYTHM Compared to ECG 09/02/23 14:24:41 Atrial fibrillation no longer present Left-axis deviation no longer present Progress Note: A&P Assessment and Plan (1) Urinary tract infection: Assessment and Plan: ACUTE Remains afebrile, suprapubic tenderness resolved Urine Cx growing Strep agalactiae - Sensitive to cephalosporins Continue IVPB Rocephin Plan to d/c on oral Cefdinir to complete 5 day course if needed No clinical concern for sepsis at this time CBC, CMP daily Qualifiers: Hematuria presence: with hematuria Urinary tract infection type: acute cystitis Qualified Code(s): N30.01 - Acute cystitis with hematuria (2) Rhabdomyolysis: Assessment and Plan: ACUTE Laboratory Tests 09/02/23 09/03/23 09/04/23 12:04 04:57 06:24 Total Creatine Kinase 1736 H* 600 H* 244 H CPK continues trending down nicely - nearly WNL Continue LR IVF at reduced rate of 75 ml/hr Repeat CPK in AM to monitor, then likely d/c daily lab See JOSE below Qualifiers: Encounter type: initial encounter Rhabdomyolysis type: traumatic Qualified Code(s): T79.6XXA - Traumatic ischemia of muscle, initial encounter (3) Acute kidney injury superimposed on CKD: Assessment and Plan: ACUTE Laboratory Tests 09/02/23 09/03/23 09/04/23 07:35 04:57 06:24 BUN 35.0 H 41.0 H 41.0 H Creatinine 1.73 H 1.53 H 1.16 H Est GFR (Non-Af Amer) 28 L 32 L 44 L Improving/resolving JOSE multifactorial including UTI, dehydration, and rhabdomyolysis Reduce LR to 75 ml/hr Continue to hold all renal toxic medications Treat UTI as above Baseline CKD3b - see below CMP daily (4) Acute dehydration: Assessment and Plan: ACUTE Slowly improving but pre-renal azotemia persists supported by clinically dry presentation Continues to require IVF administration, inpatient care D/t poor appetite and difficulty ambulating 2/2 severe back pain, likely exacerbated by baseline suspected dementia Continue maintenance IVF at reduced rate of 75 ml/hr for more gentle hydration Strict I&O and daily weights CMP daily (5) Atrial fibrillation with controlled ventricular rate: Assessment and Plan: ACUTE Paroxysmal - currently SR, but goes in and out of a-fib on tele New onset Controlled rate continues Consider exchanging coreg for metoprolol if RVR occurs per cardiology recommmendation [id number] score of 5 - high risk Pt does not fall frequently, but is at risk. Ambulates with cane or walker. Continue renally dosed Eliquis - Cardiology recommends penitentiary anticoagulation in absence of significant contraindication Consult cardiology - we appreciate their assistance with this pt's care Follow up outpatient in 2-4 weeks Serial EKGs and troponins to r/o ACS as inciting event w/ mild bump in troponins in the ED Troponins mildly elevated but relatively flat likely Type 2 NJ d/t demand in setting of JOSE/UTI/new onset a-fib 2D Echo 09/02/23 - Preserved LVEF 60%. Grade 2 diastolic HF. No valvular dysfunction noted. Severe RV pressure (RVSP is 62 mmHg.) Tele monitoring Electrolytes WNL TSH suppressed suggestion supratherapeutic levothyroxine dosing. Continue decreased dose of levothyroxine of 112 mcg daily at discharge. Repeat TSH in 6-8 weeks. Possible contributor to a-fib (6) Acute urinary retention: Assessment and Plan: ACUTE D/C Valle catheter this morning for void trial Reinsert if urinary retention recurs - likely d/c to SNF w/ Valle in place Suspect 2/2 UTI and Detrol LA Detrol held - likely d/c at discharge Consider outpatient referral to urology pending clinical course (7) Elevated troponin I level: Assessment and Plan: ACUTE Resolved to normal Mild elevation that was relatively flat, trending down this morning Likely Type 2 NJ from demand ischemia in setting of JOSE, UTI, and new onset a-fib Pt remains completely asymptomatic No clinical concern for ACS (8) Strain of lumbar region: Assessment and Plan: ACUTE No known fall or inciting event for severe back pain CT L-spine and pelvis XR neg for acute fx Continue pain management: D.c Tramadol today start Percocet for improved pain management Lidoderm patch to affected area q12h Prednisone 20 mg PO daily x 5 days Consider MRI L-spine pending clinical course as nerve compression or occult compression fx remain in the differential PT/OT consults for strengthening and SNF evaluation. Qualifiers: Encounter type: initial encounter Qualified Code(s): S39.012A - Strain of muscle, fascia and tendon of lower back, initial encounter (9) Diabetes type 2, controlled: Assessment and Plan: CHRONIC Pt taken off all hyperglycemia medications recently d/t weight loss and improved BS control Hyperglycemia improving A1C WNL at 5/ today ACHS glucometer checks Regular diet d/t suppressed appetite, consider CC diet pending clinical course Low SSI for glucose correction, add Levemir 10 un at HS during inpatient admission Likely d/c insulins at discharge Suspect hyperglycemia 2/2 acute illness w/ normal A1C Qualifiers: Chronic kidney disease stage: stage 3 (moderate) Diabetes mellitus complication detail: with chronic kidney disease Diabetes mellitus complication status: with kidney complications Diabetes mellitus 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 foreman insulin use: without penitentiary use Qualified Code(s): E11.22 - Type 2 diabetes mellitus with diabetic chronic kidney disease; N18.30 - Chronic kidney disease, stage 3 unspecified (10) Chronic kidney disease, stage 3b: Assessment and Plan: CHRONIC Baseline CKD3b - lab ranges: BUN 33-50 Cr 1.3-1.6 eGFR 30-38 See JOSE above (11) High cholesterol: Assessment and Plan: CHRONIC Continue home statin (12) Hypertension: Assessment and Plan: CHRONIC Continue home amlodipine and Coreg Qualifiers: Hypertension type: primary hypertension Qualified Code(s): I10 - Essential (primary) hypertension (13) Hypothyroidism: Assessment and Plan: CHRONIC Supratherapeutic TSH on AM labs Reduce home levothyroxine dosing Qualifiers: Hypothyroidism type: acquired Qualified Code(s): E03.9 - Hypothyroidism, unspecified (14) Nocturia: Assessment and Plan: CHRONIC Hold home bedtime Detrol LA in setting of acute UTI and urinary retention Likely d/c at discharge d/t urinary retention pending clinical course
--- NOTE | 2023-09-04 12:41 | PT.DAILY ---
Physical Therapy Daily Note PT Daily Note/Assess Start: 09/03/23 10:43 Freq: Status: Active Protocol: Document 09/04/23 12:37 KOBE (Rec: 09/04/23 12:41 RUPINDERANALILIA [id number]) Physical Therapy Daily Note/Assessment Time In/Time Out Time In 11:20 Time Out 11:30 Pain In Pain N/A Pain Level 8 Pain Out Pain Level 8 Subjective Subjective Pt sitting in BS chair upon arrival. Agrees to chair level ex this morning but does need motivation to participate. Therapeutic Exercise Time Therapeutic Exercise Minutes (minutes) 8 Therapeutic Exercise Units 1 Therapeutic Exercise Treatment Therapeutic Exercise Treatment Seated AP, LAQ, marches, add squeezes, aa abd step outs 10x ea. UE PROM shoulder flexion and elbow flexion 10x ea. Therapeutic Activity Time Therapeutic Activity Minutes (minutes) 2 Therapeutic Activity Units 0 Therapeutic Activity Treatment Chair Transfer Ability Maximum Assist,2 Person Assist Therapeutic Activity Comments Attempts to stand pt with nursing with maxA+2 but pt resists therapist and nursing - unsafe to transfer at this time. remains in BS chair - chair alarm places behind her back vs under bottom. Total Physical Therapy Time Total Therapy Minutes 10 Total Physical Therapy Units 1 Summary Daily Note Summary Cont to subjectively report high pain and lacks motivation to participate with PT.
[2023-09-04] MEDS: OXYCODONE HCL/ACETAMINOPHEN 5MG/325MG 1 TAB PO ×2 (12:56→20:42)
--- NOTE | 2023-09-04 14:00 | SWNOTE1 ---
SW sent updates to [facility].
[2023-09-04] MEDS: LACTATED RINGER'S SOLUTION 1,000 ML 75 ML IV (15:15)
[2023-09-04 17:03] LABS: Glucometer 193 mg/dL (74-106)
[2023-09-04 19:58] LABS: Glucometer 194 mg/dL (74-106)
[2023-09-04] MEDS: 0.9 % SODIUM CHLORIDE 1,000 ML 500 ML IV (20:42)
[2023-09-04] MEDS: INSULIN DETEMIR 300 UNIT/3 ML INSULN.PEN 10 UNIT SUBQ (22:23)
[2023-09-04] MEDS: INSULIN ASPART 300 UNIT/3 ML PEN SUBQ (22:23)
[2023-09-05] VITALS (7 sets, daily range): BP systolic 150; BP diastolic 73; PULSE 66–86; RESP 18; TEMP 37.2; O2SAT 93
[2023-09-05 05:09] LABS: Basophils Percent Auto 0.1 % (0.2-2.0); Hematocrit 29.4 % (36.0-48.0); Immature Granulocytes Abs Auto 0.09 10^3/uL (0.00-0.03); Immature Granulocytes Pct Auto 0.8 % (0.0-0.5); Lymphocytes Absolute Auto 0.2 10^3/uL (1.2-3.8); Mean Corpuscular Hemoglobin 29.2 pg (26.7-34.0); Mean Corpuscular Volume 85.7 fL (81.0-99.0); Mean Platelet Volume 10.3 fL (9.5-13.5); Monocytes Absolute Auto 0.9 10^3/uL (0.3-0.8); Monocytes Percent Auto 8.3 % (1.7-12.0); Neutrophils Percent Auto 88.8 % (43.0-75.0); Platelet Count 163 10^3/uL (150-450); Red Blood Count 3.43 10^6/uL (4.20-5.40); Red Cell Distribution Width 12.8 % (11.0-15.0); White Blood Count 11.3 10^3/uL (4.0-11.0)
[2023-09-05] MEDS: OXYCODONE HCL/ACETAMINOPHEN 5MG/325MG 1 TAB PO ×2 (05:18→12:26)
[2023-09-05] MEDS: LACTATED RINGER'S SOLUTION 1,000 ML 75 ML IV (05:19)
[2023-09-05 05:33] LABS: Alanine Aminotransferase 23 U/L (14-59); Albumin Globulin Ratio 0.5; Albumin Level 2.3 g/dL (3.4-5.0); Alkaline Phosphatase 58 U/L (46-116); Anion Gap 14.5; Aspartate Amino Transferase 27 U/L (15-37); BUN Creatinine Ratio 29.2; Bilirubin Total 0.4 mg/dL (0.2-1.0); Calcium 8.1 mg/dL (8.5-10.1); Carbon Dioxide 18.7 mmol/L (21.0-32.0); Chloride 101 mmol/L (98-107); Estimated GFR (African America 59 (>=60); Estimated GFR (Non-African Ame 49 (>=60); Globulin 4.2 g/dL; Glucose 116 mg/dL (74-106); Potassium 4.2 mmol/L (3.5-5.1); Sodium 130 mmol/L (136-145); Total Protein 6.5 g/dL (6.4-8.2)
[2023-09-05 05:38] LABS: Creatine Kinase 143 U/L (26-192)
[2023-09-05] MEDS: LEVOTHYROXINE SODIUM 125 MCG TABLET 112 MCG PO (06:11)
[2023-09-05] MEDS: AMLODIPINE BESYLATE 5 MG TABLET 10 MG PO (09:13)
[2023-09-05] MEDS: APIXABAN 5 MG TABLET 2.5 MG PO (09:15)
[2023-09-05] MEDS: CARVEDILOL 12.5 MG TABLET PO (09:16)
[2023-09-05] MEDS: PREDNISONE 20 MG TABLET PO (09:17)
[2023-09-05] MEDS: CEFTRIAXONE 1,000 MG in 0.9 % SODIUM CHLORIDE 50 ML 100 MG IV (09:27)
[2023-09-05 10:53] LABS: Glucometer 173 mg/dL (74-106)
--- NOTE | 2023-09-05 11:31 | CM.NOTE ---
Rounds made with tamika Hall for discharge to skilled facility today ([facility]).
--- NOTE | 2023-09-05 11:38 | P.DS_ITS ---
Patient seen and examined, agree with assessment below. Admitted after a fall and UTI. Found rhabdomyolysis and improved with IV fluids. UTI due to S. agalactiea and sensitive to rocephin. Started PT/OT for weakness. Pain improved. Recommended SNF and transferred in stable condition. DS: Providers Provider Date of admission: 09/02/23 11:23 Primary care physician: SEN WILSON Admitting clinician: Radha Whelan Attending physician on admission: Ryan Murdock Consults: 09/02/23 11:41 Physical Therapy Eval and Treat Routine Reason for consultation: Gen Weakness, low back/hip pain, unable to walk Has provider been notified: No 09/02/23 12:13 Consult to Cardiology Routine Consulting Provider: GRICELDA ABREU Reason for consultation: New onset A-fib Has provider been notified: Yes 09/02/23 12:27 Occupational Therapy Eval and Treat Routine Reason for consultation: Gen weakness/Severe lumbar pain Has provider been notified: No Attending physician on discharge: Ryan Murdock Discharging clinician: Radha Whelan Anticipated date of discharge: 09/05/23 DS: Diagnosis Discharge Diagnosis (1) Urinary tract infection: Qualifiers: Hematuria presence: with hematuria Urinary tract infection type: acute cystitis Qualified Code(s): N30.01 - Acute cystitis with hematuria (2) Rhabdomyolysis: Qualifiers: Rhabdomyolysis type: traumatic Encounter type: initial encounter Qualified Code(s): T79.6XXA - Traumatic ischemia of muscle, initial encounter (3) Acute kidney injury superimposed on CKD: (4) Acute dehydration: (5) Atrial fibrillation with controlled ventricular rate: (6) Acute urinary retention: (7) Elevated troponin I level: (8) Strain of lumbar region: Qualifiers: Encounter type: initial encounter Qualified Code(s): S39.012A - Strain of muscle, fascia and tendon of lower back, initial encounter DS: Summary Hospital Course Hospital Course: The patient was admitted with a UTI, dehydration, acute kidney injury, and subsequently found to have rhabdomyolysis after lying on the floor for several hours prior to admission. She was treated with IVPB Rocephin and her urine culture grew out strep agalactiae sensitive to cephalosporins. A 5-day total course of treatment will be completed after discharge. The patient's acute kidney injury was treated with antibiotics for UTI and IV fluids for rhabdo. He r renal function returned to her baseline CKD 3B prior to discharge. She was significantly dehydrated on admission and required IV fluids throughout her hospital stay. We are recommending careful monitoring of p.o. intake after discharge with a goal of 1700 mL/day of fluid by mouth. During the patient stay she also developed acute urinary retention. Her Detrol LA was discontinued and a Garcias catheter was placed. A void trial was attempted during the stay and she continued to exhibit urinary retention and thus a Garcias catheter was replaced. She should be referred to urology after discharge for further management of her acute urinary retention. She was also noted to be in A-fib with a controlled rate on admission. This is new onset diagnosis for the patient and appears to be paroxysmal. Her rate remained controlled on her home coreg throughout her stay. A mildly elevated troponin level was also noted but this remained relatively flat. She was seen in consult by cardiology and they suspect demand ischemia from new A-fib and acute illness. Anticoagulation for CVA prevention was recommended and cardiology will follow-up as an outpatient. The patient was initially on Chhaya enox during her hospitalization and then converted to DOAC therapy successfully. The patient is at some risk for falls so anticoagulation may need to be reassessed in the future by her PCP if the risks are too great. Her TSH was found to be suppressed and thus supratherapeutic levothyroxine dosing may have contributed to her new A-fib. Her levothyroxine dose was reduced and a follow up TSH should be obtained in 6-8 weeks. The patient was complaining of severe back and hip pain on admission of unknown etiology. She does have advanced arthritic changes noted on imaging but no acute fractures or dislocations were found on CT. Her pain was managed symptomatically with a combination of Lidoderm and p.o. opioids. Her pain management is improved but likely will not be completely resolved due to the chronic nature of her complaint. She was also seen by physical therapy for generalized strengthening. She will need further physical therapy at a local SNF before she will be safe to be discharged home again. She is being discharged to a local SNF in stable condition should. She should follow-up with her PCP in 1 to 2 weeks. She should follow-up with cardiology in 2 to 4 weeks and an appointment should be made with urology as soon as possible as well. She should maintain her Garcias catheter until instructed otherwise by urology. Status at Discharge Functional status at discharge: uses cane/walker Overall status at discharge: patient is progressing back to baseline Time Spent with Patient Time attestation: Total time spent providing and/or coordinating discharge services: Time spent: greater than 30 minutes Specific discharge activities: Discussing discharge to SNF, medications at discharge, follow up appointments Exam Constitutional Vital Signs, click to edit/add: Last Vital Signs Temp 98.9 F 09/05/23 04:00 Pulse 81 09/05/23 09:50 Resp 18 09/05/23 04:00 BP 150/73 H 09/05/23 09:13 Pulse Ox 93 L 09/05/23 04:00 O2 Del Method Room Air 09/05/23 04:00 Common normals: no apparent distress, oriented x3 and alert General appearance: cooperative Orientation/consciousness: Yes awake HENMT Common normals: normocephalic and head/scalp atraumatic Head and scalp: normocephalic and atraumatic Eye Common normals: PERRL, EOMs intact bilaterally, conjunctivae normal and no scleral icterus Conjunctiva: conjunctiva(e) normal Pupil: PERRL Neck & C-Spine Common normals: no JVD Respiratory Common normals: normal respiratory effort, no use of accessory muscles and clear to auscultation bilaterally Effort & inspection: able to speak in complete sentences and symmetric chest movement Auscultation: clear to auscultation bilaterally Cardio Common normals: no JVD, regular rate, regular rhythm, S1 normal heart sound, S2 normal heart sound, no gallops, no clicks, no rub and peripheral pulses 2+ throughout Rate: regular rate Rhythm: regular rhythm Heart sounds: S1 normal and S2 normal Peripheral pulses: pulses 2+ throughout GI Common normals: Normal to inspection, nondistended, normoactive bowel sounds present, soft to palpation and non-tender Palpation: soft Bladder/kidney exam: bladder normal to palpation Extremity Common normals: normal to inspection, full ROM, normal capillary refill and no pedal edema General: no clubbing and no cyanosis Neuro Common normals: oriented x3, CN's II-XII intact bilaterally, moves all extremities, no focal motor deficits and no sensory deficits noted Sensorium/orientation: awake and alert Speech: speech normal Psych Common normals: mental status grossly normal and activity/motor behavior normal Appearance: grossly normal DS: Data Data Completed and Pending Completed studies during hospitalization: CXR Head CT Hip/Pelvis XR Lumbar Spine CT 2D Echo Labs on day of discharge: Labs from last 24 hours 09/05/23 09/05/23 09/04/23 10:52 04:22 19:56 WBC 11.3 H RBC 3.43 L Hgb 10.0 L Hct 29.4 L MCV 85.7 MCH 29.2 MCHC 34.0 RDW 12.8 Plt Count 163 MPV 10.3 Neut % (Auto) 88.8 H Lymph % (Auto) 2.0 L Dundy % (Auto) 8.3 Eos % (Auto) 0.0 L Baso % (Auto) 0.1 L Neut # (Auto) 10.0 H Lymph # (Auto) 0.2 L Dundy # (Auto) 0.9 H Eos # (Auto) 0.0 Baso # (Auto) 0.0 Abs Immat Gran (auto) 0.09 H Imm/Tot Granulo (auto) 0.8 H Sodium 130 L Potassium 4.2 Chloride 101 Carbon Dioxide 18.7 L Anion Gap 14.5 BUN 31.0 H Creatinine 1.06 H Est GFR ( Amer) 59 L Est GFR (Non-Af Amer) 49 L BUN/Creatinine Ratio 29.2 Glucose 116 H Calcium 8.1 L Total Bilirubin 0.4 AST 27 ALT 23 Alkaline Phosphatase 58 Total Creatine Kinase 143 Total Protein 6.5 Albumin 2.3 L Globulin 4.2 Albumin/Globulin Ratio 0.5 POC Glucose 173 H 194 H 09/04/23 17:00 WBC RBC Hgb Hct MCV MCH MCHC RDW Plt Count MPV Neut % (Auto) Lymph % (Auto) Dundy % (Auto) Eos % (Auto) Baso % (Auto) Neut # (Auto) Lymph # (Auto) Dundy # (Auto) Eos # (Auto) Baso # (Auto) Abs Immat Gran (auto) Imm/Tot Granulo (auto) Sodium Potassium Chloride Carbon Dioxide Anion Gap BUN Creatinine Est GFR ( Amer) Est GFR (Non-Af Amer) BUN/Creatinine Ratio Glucose Calcium Total Bilirubin AST ALT Alkaline Phosphatase Total Creatine Kinase Total Protein Albumin Globulin Albumin/Globulin Ratio POC Glucose 193 H Discharge Plan Discharge Disposition: [facility] SNF Condition: Fair Discharge Medications: New Eliquis 5 mg Tablet 2.5 mg PO BID Qty: 60 0RF levothyroxine 125 mcg Tablet 112 mcg PO DAILY Qty: 30 0RF oxycodone-acetaminophen 5-325 mg Tablet 1 tab PO Q4H PRN (Reason: Pain) Qty: 20 0RF lidocaine 5 % Adhesive Patch,Medicated 1 patch topical Q24H Qty: 30 0RF cefdinir 300 mg capsule 300 mg PO BID Qty: 5 0RF Continued carvedilol 12.5 mg tablet 12.5 mg PO Q12H alendronate 70 mg tablet 70 mg PO .weekly Patient Comments: On wednesdays simvastatin 40 mg tablet 40 mg PO DAILY amlodipine 10 mg tablet 10 mg PO DAILY Discontinued tolterodine 2 mg tablet 2 mg PO BEDTIME levothyroxine 125 mcg tablet 125 mcg PO DAILY Activity Restrictions/Additional Instructions: - PT/OT - generalized weakness, back/hip pain - BMP weekly x 2 weeks - Monitor JOSE on CKD3b - TSH 6-8 weeks - therapeutic monitoring of new levothyroxine dose. 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 for rehab. Forms: Portal Instructions Follow Up Appointments: - Follow up with Cardiology in 2-4 weeks - new onset paroxysmal A-fib - Referral to urology for urinary retention
[2023-09-05] MEDS: LIDOCAINE 5% PATCH 1 PATCH TOPICAL (12:07)
--- NOTE | 2023-09-05 12:36 | SWNOTE1 ---
Pt is ready for discharge today and will be going to [facility] skilled for rehab. SW sent over dc paperwork, completed HENS, and set up transport. Nursing recommended stretcher for transport. SW set up [facility] and they will be here around 1:15pm. SW notified nursing, family, and [facility] of time. SW updated packet.
--- NOTE | 2023-09-05 12:45 | PC.NURSE ---
Report called to Barbara at [facility]. Informed of Cardiology and Urology consults needed to be made. Nurse states she will take care of those appointments. also informed of all lab work to be done, fluid goals, and garcias maintenance per our Nurse practitioner. Barbara verbalizes understanding. Toldthat copies of these instructions will be sent with transfer envelope.
== END 2023-09-05 13:39 | DRG 689 ==
LOC: ER 09:08 → MS 10:25
PROVIDERS: Nurse Practitioner; Admitting Provider Family Medicine; Emergency Provider Emergency Medicine Emergency Medical Services; PCP Internal Medicine; Visit Provider Family Medicine
DX: N30.01 Acute cystitis with hematuria (principal); I21.A1 Myocardial infarction type 2; N17.9 Acute kidney failure, unspecified; Z16.29 Resistance to other single specified antibiotic; I24.89 Other forms of acute ischemic heart disease; B95.1 Streptococcus, group B, as the cause of diseases classified elsewhere; T79.6XXA Traumatic ischemia of muscle, initial encounter; E86.0 Dehydration; I48.0 Paroxysmal atrial fibrillation; R33.9 Retention of urine, unspecified; R79.89 Other specified abnormal findings of blood chemistry; S39.012A Strain of muscle, fascia and tendon of lower back, initial encounter; E11.22 Type 2 diabetes mellitus with diabetic chronic kidney disease; I12.9 Hypertensive chronic kidney disease with stage 1 through stage 4 chronic kidney disease, or unspecified chronic kidney disease; N18.32 Chronic kidney disease, stage 3b; M51.36 Other intervertebral disc degeneration, lumbar region; R35.1 Nocturia; R29.6 Repeated falls; E78.00 Pure hypercholesterolemia, unspecified; E03.9 Hypothyroidism, unspecified; W06.XXXA Fall from bed, initial encounter; Y93.9 Activity, unspecified; Y92.003 Bedroom of unspecified non-institutional (private) residence as the place of occurrence of the external cause; Y99.9 Unspecified external cause status; Z90.710 Acquired absence of both cervix and uterus; Z83.3 Family history of diabetes mellitus; Z82.49 Family history of ischemic heart disease and other diseases of the circulatory system; Z80.9 Family history of malignant neoplasm, unspecified; Z79.890 Hormone replacement therapy; Z79.899 Other long term (current) drug therapy
CPT/HCPCS: 36415; 51702; 51798; 70450; 71045; 72131; 73523; 80053; 81001; 81003; 82550; 82948; 83036; 83735; 84443; 84484; 85025; 85027; 87086; 87150; 93005; 93306; 96361; 96366; 96372; 97110; 97162; 97165; 97530; 97535; 99285; J1170

== ENCOUNTER 2023-09-22 15:11 | Emergency (ER) | payer MEDICARE, BC, SELFPAY ==
[2023-09-22] VITALS (25 sets, daily range): BP systolic 103–157; BP diastolic 42–85; PULSE 78–98; RESP 21–34; TEMP 36.6; O2SAT 92–100; BMI 30.8
--- NOTE | 2023-09-22 15:49 | ECG_ITS ---
[facility] Test Date: 2023-09-22 Pat Name: RICHARD HUNT Department: Room: - Gender: Female Electrolytic Etcher: : 1935 Requested By: HELEN BELLA Order Number: [id number] Reading MD: YOGI LERNER Measurements Intervals [place] Rate: 76 P: 90 NM: 192 QRS: -23 QRSD: 80 T: 30 QT: 376 QTc: 407 Interpretive Statements 1100 Sinus rhythm 1470 with occasional supraventricular premature complexes 7202 Moderate left axis deviation 9140 abnormal rhythm ECG Compared to ECG 09/03/2023 13:04:54 Left-axis deviation now present Electronically Signed On 09-23-2023 6:51:45 EDT by YOGI LERNER
--- NOTE | 2023-09-22 15:50 | CT_ITS ---
[address] [address] Patient Name: RICHARD HUNT MRN: [id number] date: 1935 Sex: F Assigned Patient Location: ER Current Patient Location: Accession/Order Number: [id number] Exam Date: 09/22/2023 16:57 Report Date: 09/22/2023 18:08 At the request of: ADELIA AMADOR Procedure: CT angio chest EXAM: CT angio chest TECHNIQUE: CT angiogram with contrast performed of the chest including multi planar reformatted images and maximum intensity projection images. 3-D volume rendering was obtained. Dose reduction techniques were achieved by using automated exposure control and/or adjustment of mA and/or kV according to patient size and/or use of iterative reconstruction technique. HISTORY: Shortness of breath and back pain. r/o pe COMPARISON: None. FINDINGS: Neck and Axilla: No lower neck or axillary lymphadenopathy. Mediastinum and Sandy: No hilar or mediastinal lymphadenopathy. The esophagus is grossly unremarkable without dilatation or gross mass lesion. Heart and Major Vessels: Coronary calcification. No pericardial effusion. The aorta and central pulmonary arteries are unremarkable for size. Lung Lan: No acute consolidation. Coarse peripheral interstitial stranding in the lower lobes. Mild bullous emphysematous changes. Pleural Spaces: No significant pleural effusion. No pneumothorax. Upper Abdomen: No acute abnormality identified. Chest Wall: No acute abnormality. CT/CT angio chest IMPRESSION: No evidence for acute pulmonary embolism. No focal consolidation. Peripheral lower lung reticulation may represent chronic scarring or fibrotic changes. Evaluation is limited by breathing motion artifact. Electronically authenticated by: FROY DIALLO Date: 09/22/2023 18:08
--- NOTE | 2023-09-22 15:53 | ED_ITS ---
Documented by User: ELLY Clark 09/22/23 18:21 HPI - SOB/Dyspnea General Chief Complaint: Shortness of Breath/Dyspnea Stated Complaint: Back Pain Shortness of breath Time Seen by Provider: 09/22/23 15:49 Source: patient Mode of arrival: Wheelchair Limitations: no limitations History of Present Illness HPI Narrative: 88-year-old female past medical history A-fib presents from a cardiology office as she was getting testing and they sent her over here due to her breathing. Son is here with her giving the history and he is not sure what test she had today. He states that she was here 3 weeks ago and was admitted for UTI and discharged to the [facility] for rehab. He states ever since this happened, she gets worked up and anxious and starts breathing faster than her normal. He states that her breathing is normal. She is a DNR CC. Son states that she developed pneumonia a week ago and was placed on antibiotics, but he is not sure which antibiotic she is on. When patient is asked what is wrong, she just dates that she has some lower back pain. Son states that she has had lower back pain for the past 3 weeks. She arrives with a lidocaine patch applied. Denies fever, cough, dizziness, CP Related Data Home Medications Medication Instructions Recorded Confirmed alendronate 70 mg tablet 70 mg PO .weekly 09/02/23 09/02/23 amlodipine 10 mg tablet 10 mg PO DAILY 09/02/23 09/02/23 carvedilol 12.5 mg tablet 12.5 mg PO Q12H 09/02/23 09/02/23 simvastatin 40 mg tablet 40 mg PO DAILY 09/02/23 09/02/23 Previous Rx's Medication Instructions Recorded apixaban 5 mg tablet (Eliquis) 2.5 mg PO BID #60 tabs 09/04/23 levothyroxine 125 mcg tablet 112 mcg PO DAILY #30 tabs 09/04/23 lidocaine 5 % topical patch 1 patch topical Q24H #30 ea 09/04/23 oxycodone-acetaminophen 5 mg-325 1 tab PO Q4H PRN Pain #20 tabs 09/04/23 mg tablet cefdinir 300 mg capsule 300 mg PO BID #5 caps 09/05/23 Allergies Allergy/AdvReac Type Severity Reaction Status Date / Time No Known Drug Allergies Allergy Verified 09/22/23 15:23 Review of Systems ROS Status of ROS 10 or more systems reviewed and unremarkable except as noted in history and below [facility] Medical History (Updated 09/22/23 @ 18:20 by ELLY Clark) 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 - Lymphocytopenia (ICD-10) Chronic kidney disease, stage 3b ?N18.32 - Chronic kidney disease, stage 3b (ICD-10) Diabetes type 2, controlled ?E11.9 - Type 2 diabetes mellitus without complications (ICD-10) Diastolic dysfunction ?I51.89 - Other ill-defined heart diseases (ICD-10) High cholesterol ?E78.00 - Pure hypercholesterolemia, unspecified (ICD-10) Hypertension ?I10 - Essential (primary) hypertension (ICD-10) Hypothyroidism ?E03.9 - Hypothyroidism, unspecified (ICD-10) Nocturia ?R35.1 - Nocturia (ICD-10) Surgical History H/O: hysterectomy ?Z90.710 - Acquired absence of both cervix and uterus (ICD-10) Family History Mother Family history of diabetes mellitus Father Family history of diabetes mellitus Family history of hypertension Son Family history of cancer Social History Within the past year, how often did you have a drink containing alcohol: never Score interpretation: A score less than 3 is consistent with normal alcohol consumption. Smoking status: Never smoker Non-prescribed substance use: denies use Exam Narrative Exam Narrative: General: alert, no distress, talking in full an complete sentences skin: warm, dry, intact head: normocephalic, atraumatic eyes: EOMI, normal conjunctiva nose: nares patent throat: no stridor neck: supple, trachea midline cardiac: +S1/S1. no murmur respiratory: lungs CTA, non-labored, no wheezing, no retractions extremities: FROM x 4, strength +5/5, capillary refill intact neuro: A&Ox3 psych: appropriate mood and affect, cooperative Constitutional Vital Signs, click to edit/add: Last Vital Signs Temp 97.9 F 09/22/23 15:34 Pulse 89 09/22/23 18:50 Resp 25 H 09/22/23 18:50 BP 141/77 09/22/23 18:00 Pulse Ox 99 09/22/23 18:50 O2 Del Method Room Air 09/22/23 15:58 Course Vital Signs Vital signs: Vital Signs Temperature 97.9 F 09/22/23 15:34 Pulse Rate 82 09/22/23 15:34 Respiratory Rate 31 H 09/22/23 15:34 Blood Pressure 103/42 L 09/22/23 15:34 Pulse Oximetry 96 09/22/23 15:34 Oxygen Delivery Method Room Air 09/22/23 15:34 Temperature 97.9 F 09/22/23 15:34 Pulse Rate 89 09/22/23 18:50 Respiratory Rate 25 H 09/22/23 18:50 Blood Pressure 141/77 09/22/23 18:00 Pulse Oximetry 99 09/22/23 18:50 Oxygen Delivery Method Room Air 09/22/23 15:58 MDM - SOB/Dyspnea MDM Narrative Medical decision making narrative: EKG sinus rhythm with occasional PVCs at a rate of 76 artifact noted, QTc 407. No acute findings on final read of CT PE chest. Hemoglobin 9.9 and this appears around her normal. Sodium 131. Bicarb 17.8. Creatinine 1.48, 2 weeks ago this was 1.06. She appears little dehydrated. No other significant lab abnormalities. She will be given IV fluids. Son updated and he continues to state that he thinks that this is likely anxiety about her health. F/u with PCP. afebrile, not tachypneic, not tachycardic, tolerating p.o., not hypoxic, non toxic appearing and ambulating at baseline and hemodynamically stable to be d/c. answered all questions. pt in agreement with tx. educated when to return to ER. Lab Data Labs: Lab Results 09/22/23 09/22/23 Range/Units 15:50 18:47 WBC 5.0 (4.0-11.0) 10^3/uL RBC 3.58 L (4.20-5.40) 10^6/uL Hgb 9.9 L (12.0-16.0) g/dL Hct 29.6 L (36.0-48.0) % MCV 82.7 (81.0-99.0) fL MCH 27.7 (26.7-34.0) pg MCHC 33.4 (29.9-35.2) g/dL RDW 12.3 (11.0-15.0) % Plt Count 389 (150-450) 10^3/uL MPV 8.8 L (9.5-13.5) fL Neut % (Auto) 86.0 H (43.0-75.0) % Lymph % (Auto) 7.6 L (20.5-60.0) % Elmore % (Auto) 5.0 (1.7-12.0) % Eos % (Auto) 0.0 L (0.9-7.0) % Baso % (Auto) 0.0 L (0.2-2.0) % Neut # (Auto) 4.3 (1.4-6.5) 10^3/uL Lymph # (Auto) 0.4 L (1.2-3.8) 10^3/uL Elmore # (Auto) 0.3 (0.3-0.8) 10^3/uL Eos # (Auto) 0.0 (0.0-0.7) 10^3/uL Baso # (Auto) 0.0 (0.0-0.1) 10^3/uL Abs Immat Gran (auto) 0.07 H (0.00-0.03) 10^3/uL Imm/Tot Granulo (auto) 1.4 H (0.0-0.5) % PT 12.6 H (9.0-11.6) sec INR 1.20 Sodium 131 L (136-145) mmol/L Potassium 4.6 (3.5-5.1) mmol/L Chloride 100 (98-107) mmol/L Carbon Dioxide 17.8 L (21.0-32.0) mmol/L Anion Gap 17.8 BUN 25.0 H (7.0-18.0) mg/dL Creatinine 1.48 H (0.55-1.02) mg/dL Est GFR ( Amer) 40 L (>=60) Est GFR (Non-Af Amer) 33 L (>=60) BUN/Creatinine Ratio 16.9 Glucose 138 H (74-106) mg/dL Calcium 8.8 (8.5-10.1) mg/dL Magnesium 2.0 (1.8-2.4) mg/dL Total Bilirubin 0.4 (0.2-1.0) mg/dL AST 35 (15-37) U/L ALT 26 (14-59) U/L Alkaline Phosphatase 81 (46-116) U/L Troponin I High Sens 8.0 (4.0-51.3) pg/mL NT-Pro-B Natriuret Pep 1436.0 (<=1800.0) pg/mL Total Protein 8.2 (6.4-8.2) g/dL Albumin 2.8 L (3.4-5.0) g/dL Globulin 5.4 g/dL Albumin/Globulin Ratio 0.5 SARS-CoV-2 (PCR) Negative (NEGATIVE) Discharge Plan Discharge Chief Complaint: Shortness of Breath/Dyspnea Clinical Impression: Anxiety about health Patient Disposition: Xfer SNF Time of Disposition Decision: 18:19 Discharge Location: [facility] Condition: Good Mode of Transportation: EMS Instructions: Anxiety (ED) Stand Alone Forms: Portal Instructions Referrals: HELEN BELLA [Primary Care Provider] - 1 week Discharge Date/Time: 09/22/23 19:08 Documented by User: Stanislaw Kowalski MD 09/22/23 19:35 HPI - SOB/Dyspnea General Chief Complaint: Shortness of Breath/Dyspnea Stated Complaint: Back Pain Shortness of breath Time Seen by Provider: 09/22/23 15:49 Related Data Home Medications Medication Instructions Recorded Confirmed alendronate 70 mg tablet 70 mg PO .weekly 09/02/23 09/02/23 amlodipine 10 mg tablet 10 mg PO DAILY 09/02/23 09/02/23 carvedilol 12.5 mg tablet 12.5 mg PO Q12H 09/02/23 09/02/23 simvastatin 40 mg tablet 40 mg PO DAILY 09/02/23 09/02/23 Previous Rx's Medication Instructions Recorded apixaban 5 mg tablet (Eliquis) 2.5 mg PO BID #60 tabs 09/04/23 levothyroxine 125 mcg tablet 112 mcg PO DAILY #30 tabs 09/04/23 lidocaine 5 % topical patch 1 patch topical Q24H #30 ea 09/04/23 oxycodone-acetaminophen 5 mg-325 1 tab PO Q4H PRN Pain #20 tabs 09/04/23 mg tablet cefdinir 300 mg capsule 300 mg PO BID #5 caps 09/05/23 Allergies Allergy/AdvReac Type Severity Reaction Status Date / Time No Known Drug Allergies Allergy Verified 09/22/23 15:23 PFSH [facility] Medical History (Updated 09/22/23 @ 18:20 by ELLY Clark) 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 - Lymphocytopenia (ICD-10) Chronic kidney disease, stage 3b ?N18.32 - Chronic kidney disease, stage 3b (ICD-10) Diabetes type 2, controlled ?E11.9 - Type 2 diabetes mellitus without complications (ICD-10) Diastolic dysfunction ?I51.89 - Other ill-defined heart diseases (ICD-10) High cholesterol ?E78.00 - Pure hypercholesterolemia, unspecified (ICD-10) Hypertension ?I10 - Essential (primary) hypertension (ICD-10) Hypothyroidism ?E03.9 - Hypothyroidism, unspecified (ICD-10) Nocturia ?R35.1 - Nocturia (ICD-10) Surgical History H/O: hysterectomy ?Z90.710 - Acquired absence of both cervix and uterus (ICD-10) Family History Mother Family history of diabetes mellitus Father Family history of diabetes mellitus Family history of hypertension Son Family history of cancer Social History Within the past year, how often did you have a drink containing alcohol: never Score interpretation: A score less than 3 is consistent with normal alcohol consumption. Smoking status: Never smoker Non-prescribed substance use: denies use Exam Constitutional Vital Signs, click to edit/add: Last Vital Signs Temp 97.9 F 09/22/23 15:34 Pulse 89 09/22/23 18:50 Resp 25 H 09/22/23 18:50 BP 141/77 09/22/23 18:00 Pulse Ox 99 09/22/23 18:50 O2 Del Method Room Air 09/22/23 15:58 Course Vital Signs Vital signs: Vital Signs Temperature 97.9 F 09/22/23 15:34 Pulse Rate 82 09/22/23 15:34 Respiratory Rate 31 H 09/22/23 15:34 Blood Pressure 103/42 L 09/22/23 15:34 Pulse Oximetry 96 09/22/23 15:34 Oxygen Delivery Method Room Air 09/22/23 15:34 Temperature 97.9 F 09/22/23 15:34 Pulse Rate 89 09/22/23 18:50 Respiratory Rate 25 H 09/22/23 18:50 Blood Pressure 141/77 09/22/23 18:00 Pulse Oximetry 99 09/22/23 18:50 Oxygen Delivery Method Room Air 09/22/23 15:58 MDM - SOB/Dyspnea MDM Narrative Medical decision making narrative: EKG sinus rhythm with occasional PVCs at a rate of 76 artifact noted, QTc 407. No acute findings on final read of CT PE chest. Hemoglobin 9.9 and this appears around her normal. Sodium 131. Bicarb 17.8. Creatinine 1.48, 2 weeks ago this was 1.06. She appears little dehydrated. No other significant lab abnormalities. She will be given IV fluids. Son updated and he continues to state that he thinks that this is likely anxiety about her health. F/u with PCP. afebrile, not tachypneic, not tachycardic, tolerating p.o., not hypoxic, non toxic appearing and ambulating at baseline and hemodynamically stable to be d/c. answered all questions. pt in agreement with tx. educated when to return to ER. I, Dr Kowalski, have reviewed the above progress note and course of action in the ER; agree with the above. I have personally seen and evaluated this patient, gone over history and physical, and discussed disposition and treatment plan with the patient. Lab Data Labs: Lab Results 09/22/23 09/22/23 Range/Units 15:50 18:47 WBC 5.0 (4.0-11.0) 10^3/uL RBC 3.58 L (4.20-5.40) 10^6/uL Hgb 9.9 L (12.0-16.0) g/dL Hct 29.6 L (36.0-48.0) % MCV 82.7 (81.0-99.0) fL MCH 27.7 (26.7-34.0) pg MCHC 33.4 (29.9-35.2) g/dL RDW 12.3 (11.0-15.0) % Plt Count 389 (150-450) 10^3/uL MPV 8.8 L (9.5-13.5) fL Neut % (Auto) 86.0 H (43.0-75.0) % Lymph % (Auto) 7.6 L (20.5-60.0) % Elmore % (Auto) 5.0 (1.7-12.0) % Eos % (Auto) 0.0 L (0.9-7.0) % Baso % (Auto) 0.0 L (0.2-2.0) % Neut # (Auto) 4.3 (1.4-6.5) 10^3/uL Lymph # (Auto) 0.4 L (1.2-3.8) 10^3/uL Elmore # (Auto) 0.3 (0.3-0.8) 10^3/uL Eos # (Auto) 0.0 (0.0-0.7) 10^3/uL Baso # (Auto) 0.0 (0.0-0.1) 10^3/uL Abs Immat Gran (auto) 0.07 H (0.00-0.03) 10^3/uL Imm/Tot Granulo (auto) 1.4 H (0.0-0.5) % PT 12.6 H (9.0-11.6) sec INR 1.20 Sodium 131 L (136-145) mmol/L Potassium 4.6 (3.5-5.1) mmol/L Chloride 100 (98-107) mmol/L Carbon Dioxide 17.8 L (21.0-32.0) mmol/L Anion Gap 17.8 BUN 25.0 H (7.0-18.0) mg/dL Creatinine 1.48 H (0.55-1.02) mg/dL Est GFR ( Amer) 40 L (>=60) Est GFR (Non-Af Amer) 33 L (>=60) BUN/Creatinine Ratio 16.9 Glucose 138 H (74-106) mg/dL Calcium 8.8 (8.5-10.1) mg/dL Magnesium 2.0 (1.8-2.4) mg/dL Total Bilirubin 0.4 (0.2-1.0) mg/dL AST 35 (15-37) U/L ALT 26 (14-59) U/L Alkaline Phosphatase 81 (46-116) U/L Troponin I High Sens 8.0 (4.0-51.3) pg/mL NT-Pro-B Natriuret Pep 1436.0 (<=1800.0) pg/mL Total Protein 8.2 (6.4-8.2) g/dL Albumin 2.8 L (3.4-5.0) g/dL Globulin 5.4 g/dL Albumin/Globulin Ratio 0.5 SARS-CoV-2 (PCR) Negative (NEGATIVE) Discharge Plan Discharge Chief Complaint: Shortness of Breath/Dyspnea Clinical Impression: Anxiety about health Patient Disposition: Xfer SNF Time of Disposition Decision: 18:19 Discharge Location: [facility] Condition: Good Mode of Transportation: EMS Instructions: Anxiety (ED) Stand Alone Forms: Portal Instructions Referrals: HELEN BELLA [Primary Care Provider] - 1 week Discharge Date/Time: 09/22/23 19:08
[2023-09-22 16:27] LABS: Hematocrit 29.6 % (36.0-48.0); Hemoglobin 9.9 g/dL (12.0-16.0); Immature Granulocytes Abs Auto 0.07 10^3/uL (0.00-0.03); Immature Granulocytes Pct Auto 1.4 % (0.0-0.5); Lymphocytes Absolute Auto 0.4 10^3/uL (1.2-3.8); Lymphocytes Percent Auto 7.6 % (20.5-60.0); Mean Corpuscular HGB Conc 33.4 g/dL (29.9-35.2); Mean Corpuscular Hemoglobin 27.7 pg (26.7-34.0); Mean Corpuscular Volume 82.7 fL (81.0-99.0); Mean Platelet Volume 8.8 fL (9.5-13.5); Monocytes Absolute Auto 0.3 10^3/uL (0.3-0.8); Neutrophils Absolute Auto 4.3 10^3/uL (1.4-6.5); Platelet Count 389 10^3/uL (150-450); Red Blood Count 3.58 10^6/uL (4.20-5.40); Red Cell Distribution Width 12.3 % (11.0-15.0)
[2023-09-22 16:33] LABS: Prothrombin Time 12.6 sec (9.0-11.6)
[2023-09-22 16:36] LABS: Alanine Aminotransferase 26 U/L (14-59); Albumin Globulin Ratio 0.5; Albumin Level 2.8 g/dL (3.4-5.0); Alkaline Phosphatase 81 U/L (46-116); Anion Gap 17.8; Aspartate Amino Transferase 35 U/L (15-37); BUN Creatinine Ratio 16.9; Bilirubin Total 0.4 mg/dL (0.2-1.0); Calcium 8.8 mg/dL (8.5-10.1); Carbon Dioxide 17.8 mmol/L (21.0-32.0); Chloride 100 mmol/L (98-107); Estimated GFR (African America 40 (>=60); Estimated GFR (Non-African Ame 33 (>=60); Globulin 5.4 g/dL; Glucose 138 mg/dL (74-106); Potassium 4.6 mmol/L (3.5-5.1); Sodium 131 mmol/L (136-145); Total Protein 8.2 g/dL (6.4-8.2)
[2023-09-22] MEDS: 0.9 % SODIUM CHLORIDE 1,000 ML 500 ML IV (18:34)
[2023-09-22 19:28] LABS: SARS-CoV-2 Ag NEGATIVE (NEGATIVE)
[2023-09-23 14:50] LABS: SARS-CoV-2 NAA NOT DETECTED (NOT DETECTE)
== END 2023-09-22 19:08 ==
PROVIDERS: Physician Assistant; Emergency Provider Emergency Medicine; PCP Internal Medicine
DX: F41.8 Other specified anxiety disorders (principal); I48.91 Unspecified atrial fibrillation; I12.9 Hypertensive chronic kidney disease with stage 1 through stage 4 chronic kidney disease, or unspecified chronic kidney disease; N18.32 Chronic kidney disease, stage 3b; I51.89 Other ill-defined heart diseases; E78.00 Pure hypercholesterolemia, unspecified; E03.9 Hypothyroidism, unspecified; R35.1 Nocturia; Z90.710 Acquired absence of both cervix and uterus; Z66 Do not resuscitate; Z87.01 Personal history of pneumonia (recurrent); Z79.899 Other long term (current) drug therapy; Z20.822 Contact with and (suspected) exposure to COVID-19
CPT/HCPCS: 36415; 71275; 80053; 83735; 83880; 84484; 85025; 85610; 87635; 87811; 93005; 99285; Q9967